=== PATIENT | male | born 1985 | race Caucasian/White ===

== ENCOUNTER 2025-02-20 14:41 | Emergency (ER) | payer OTHER, SELFPAY ==
--- NOTE | ~2025-02-20 | CT_ITS ---
EXAMINATION: CT brain wo con DATE: 02/20/2025 15:09 INDICATION: Fall. Intoxication. TECHNIQUE: Computed tomography (CT) of the head was performed without intravenous contrast. Sagittal and coronal reconstructions were performed. The mA was adjusted according to patient size. Iterative reconstruction technique was employed. The dose-length product was 605.33 mGy-cm. COMPARISON: None FINDINGS: No fracture. No acute intracranial hemorrhage, acute infarction or abnormal extra axial fluid collect ion. Ventricles are normal and symmetric. No mass/mass effect. Equals thickening the bilateral ethmoi d and sphenoid sinuses. The orbits and mastoid air cells are normal. IMPRESSION: 1. No fracture or acute intracranial process. Reviewed, dictated and finalized at location A.
--- NOTE | ~2025-02-20 | CT_ITS ---
EXAMINATION: CT cervical spine wo con DATE: 02/20/2025 15:09 INDICATION: Fall. Intoxication. TECHNIQUE: Computed tomography (CT) of the cervical spine was performed without intravenous contrast. Automated exposure control and iterative reconstruction technique were employed. The dose-length pro duct was 605.33 mGy-cm. COMPARISON: None FINDINGS: Straightening of the normal cervical lordosis. Vertebral body heights are normal. No fracture. Modera te to severe disc height loss with degenerative endplate changes and severe bilateral uncovertebral o steoarthritis at C5-C6. Moderate disc height loss also degenerative endplate changes and mild right-s ided and severe left-sided uncovertebral osteoarthritis at C6-C7. Mild disc height loss at C2-C3 thro ugh C4-C5. Posterior disc osteophyte complexes contribute to mild central canal stenosis at C4-C5 thr ough C6-C7. Severe bilateral facet osteoarthritis at C7-T1. There is additional mild to moderate unco vertebral and facet osteoarthritis throughout the remainder of the cervical spine. This contributes t o moderate neural foraminal stenosis on the left at C5-C6 and C6-7, mild to moderate neural foraminal stenosis on the right at C5-C6 and mild neural from stenosis at a few additional levels on the left and right. 1.4 cm subdermal cystic lesion posterior to the C2 and C3 spinous processes most consisten t with an epidermoid/sebaceous cyst. Cervical soft tissues are otherwise unremarkable. Visualized sup erior mediastinum and upper lungs are unremarkable. IMPRESSION: 1. Moderate to severe cervical spondylosis with no acute osseous abnormality. Reviewed, dictated and finalized at location A.
--- NOTE | 2025-02-20 14:52 | ED_ITS ---
HPI - Alcohol General Chief Complaint: Alcohol Stated Complaint: ETOH Time Seen by Provider: 02/20/25 14:41 Source: patient and EMS Mode of arrival: EMS Limitations: intoxication ( alcohol) History of Present Illness HPI narrative: patient is a 40-year-old male presented to the emergency room via EMS for a suspected fall with alcohol on board prior to arrival. He has no complaints. He is alcohol intoxicated at the time. EMS brought him due to intoxication. He has a small superficial abrasion on the left eyebrow. No other signs of injury. 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 of alcohol consumed: Unknown Chronic alcohol use: Yes Previous visits for alcohol intoxication: No Recent trauma: Yes ( unknown but suspect a fall per EMS) Associated symptoms: denies other symptoms Treatments prior to arrival: other ( IV and IV fluids) Related Data Home Medications ?Medication ?Instructions ?Recorded ?Confirmed ?Last Taken ?Type No Home Medications 02/20/25 02/20/25 Unknown History Allergies Allergy/AdvReac Type Severity Reaction Status Date / Time No Known Allergies Allergy Verified 02/20/25 15:01 Review of Systems Review of Systems: All systems reviewed & are unremarkable except as noted in HPI and below Constitutional: Constitutional: Reports no additional constitutional complaints Eyes: Eyes: Reports no additional eye complaints ENT: Reports system reviewed and no additional complaints, except as documented Cardiovascular: Cardiovascular: Reports no additional cardiovascular complaints Respiratory: Respiratory: Reports no additional respiratory complaints Gastrointestinal: Gastrointestinal: Reports no additional gastrointestinal complaints Genitourinary: Genitourinary: Reports no additional male genitourinary complaints Musculoskeletal: Musculoskeletal: Reports no additional musculoskeletal complaints Integumentary/Breasts: Skin/Breast: Reports system reviewed and no additional complaints, except as docu Neurologic: Reports system reviewed and no additional complaints, except as documented Psychiatric: Psychiatric: Reports no additional psychiatric complaints Endocrine: Endocrine: Reports no additional endocrine complaints Hematologic/Lymphatic: Hematologic/Lymphatic: Reports no additional hematologic/lymphatic complaints Allergic/Immunologic: Allergic/Immunologic: Reports no additional allergic/immunologic complaints Exam Const: General: healthy appearing Nutritional Appearance: well nourished Orientation/consciousness: patient oriented x3 Limitations: other limitations ( alcohol intoxication) HENMT: Head: normal to inspection Ears: external ears normal Face/Nose/Sinus: Normal external nose present Eyes: Conjunctivae: conjunctivae normal Pupils: Equal, round and reactive pupils present EOM: EOMs intact bilaterally Neck: Neck: normal visual inspection Chest: Chest palpation & inspection: normal inspection of the chest Resp: Effort & Inspection: normal respiratory effort and not labored Auscultation: clear to auscultation bilaterally and no crackles Cardio: Rate: regular rate Rhythm: regular rhythm Heart sounds: no murmurs GI: Inspection: non-distended GI Palp: Yes Soft to palpation and No Tenderness to palpation present (GI) Auscultation: normal bowel sounds : General: Yes bladder normal to palpation Back/Spine/Pelvis: Back: no CVA tenderness Skin: General skin exam: normal color Rashes: no rashes Wounds: wound noted Other: left upper eyebrow has a superficial abrasion Neuro: General: patient oriented x3, moves all extremities, no meningeal signs, no focal motor deficits and CN's II-XI intact bilaterally Cranial nerves: Yes Nystagmus not present Speech: No normal speech ( slurred secondary to alcohol intake) Extrem: General: normal to inspection Psych: Mental Status: mental status grossly normal Affect: normal affect Attitude: not cooperative ( somewhat cooperative but more so difficult) Course Vital Signs Vital signs: Vital Signs Temperature 36.6 C 02/20/25 15:02 Pulse Rate 74 02/20/25 15:02 Respiratory Rate 18 02/20/25 15:02 Blood Pressure 126/72 02/20/25 15:02 Pulse Oximetry 98 02/20/25 15:02 Oxygen Delivery Room Air 02/20/25 15:02 Temperature 36.6 C 02/20/25 15:02 Pulse Rate 68 02/20/25 17:09 Respiratory Rate 18 02/20/25 15:02 Blood Pressure 132/85 02/20/25 17:09 Pulse Oximetry 98 02/20/25 17:09 Oxygen Delivery Room Air 02/20/25 17:09 MDM - Alcohol MDM Narrative Medical decision making narrative: patient is a 40-year-old male alcohol intoxication here for alcohol intoxication by EMS decision to bring to the ER. There was a suspect fall and a left upper eyebrow superficial abrasion. Will check tetanus status. We will do CT head and neck for reassurance. Patient is AAO x4 at this time and ready for discharge. He was monitored in the emergency room for a couple of hours and no issues. Patient was road tested to the bathroom and he walked on his own w ithout difficulty. Further he was able to get up and walk in the room without trouble and walk out the main door without difficulty. He wanted to work on his ride home in the waiting room. He did not want assistance with a ride home at this time. Imaging Data Attestation: I personally reviewed and interpreted this imaging study as fol lows: Radiologist's impression: ITS Impressions Head CT 02/20/25 15:13 IMPRESSION: 1. No fracture or acute intracranial process. Cervical Spine CT 02/20/25 15:15 IMPRESSION: 1. Moderate to severe cervical spondylosis with no acute osseous abnormality. Discharge Plan Discharge Clinical Impression: Alcoholic intoxication Qualifiers: Complication of substance-induced condition: uncomplicated Qualified Code(s): F10.920 - Alcohol use, unspecified with intoxication, uncomplicated Patient Disposition: Home Condition: Improved Instructions: Alcohol Intoxication (ED) Patient Language: Mongolian Prescriptions: No Action No Home Medications Follow-up/Referrals: Porfirio Brady MD [Primary Care Provider] - Time of Disposition: 15:43
[2025-02-20 15:02] VITALS: BP 126/72; PULSE 74; RESP 18; TEMP 36.6; O2SAT 98
--- OUTSIDE RECORDS SUMMARY | 2025-02-20 15:34 | XMS_ITS | Clinical Summary ---
Author Organization [facility] Address [address] [place] [address] Phone Care Team Providers Care Instructor Flying Name Role Phone Provider, None Primary Care Provider Unavailabl e Allergies No known active allergies Medications * This document contains information received from the source organization and may not represent a complete record from that organization. No known medications Active Problems Problem Noted Date Diagnosed Date Alcohol withdrawal 12/08/2024 Chronic low back pain 03/28/2024 Obesity (BMI 30.0-34.9) 03/28/2024 Alcohol withdrawal 05/04/2023 Tobacco dependence 05/04/2023 Alcohol abuse Tobacco abuse Encounters * This document contains information received from the source organization and may not represent a complete record from that organization. Date Type Department Care Team Description 12/07/2024 Travel from Last 3 Months Family History Medical History Relation Name Comments No Known Problems Father No Known Problems Mother Relation Name Status Comments Father Mother Social History Tobacco Use Types Packs/Day Years Used Date Smoking Tobacco: Every Day Cigarettes 1 27.5 Started: 1997 Smokeless Tobacco: Never Tobacco Cessation:Ready to Q uit: No; Counseling Given: Not Answered Alcohol Use Standard Drinks/Week Comments Yes 10 (1 standard drink = 0.6 oz pure alcohol) 1/5 of whiskey or vodka per day [facility] Utilities Answer Date Recorded In the past 12 months has [facility] [employer], gas, oil, or water Foodily threatened to shut off services in your home? No 12/07/2024 Social Connection and Isolation Panel Answer Date Recorded In a typical week, how many times do you talk on the phone with family, friends, or neighbors? Patient declined 05/09/2024 How often do you get togethe r with friends or relatives? Patient declined 05/09/2024 How often do you attend shinto or amish serv ices? Patient declined 05/09/2024 Do you belong to any clubs o r organizations such as shinto groups, unions, fraternal or athletic groups, or school groups? Patient declined 05/09/2024 How often do you attend meet ings of the clubs or organizations you belong to? Patient declined 05/09/2024 Are you , , di vorced, , never , or living with a partner? Patient declined 05/09/2024 AUDIT-C Answer Date Recorded Q1: How often do you have a drink containing alc ohol? Patient declined 05/09/2024 Q2: How many drinks containi ng alcohol do you have on a typical day when you are drinking? Patient declined 05/09/2024 Q3: How often do you have si x or more drinks on one occasion? Patient declined 05/09/2024 Overall Financial Resource Strain (CARDIA) Answe r Date Recorded How hard is it for you to pa y for the very basics like food, housing, medical care, and heating? Patient declined 05/09/2024 [facility] - Occupational Stress Questionnaire Answer Date Recorded Do you feel stress - tense, restless, nervous, or anxious, or unable to sleep at night because your mind is troubled all the time - these days? Patient declined 05/09/2024 Exercise Vital Sign Answer Date Recorde d On average, how many days pe r week do you engage in moderate to strenuous exercise (like a brisk walk)? Patient declined On average, how many minutes do you engage in exercise at this level? Patient declined 05/09/2024 Hunger Vital Sign Answer Date Recorded Within the past 12 months, y ou worried that your food would run out before you got the money to buy more. Never true 12/08/19 25 Within the past 12 months, t he food you bought just didn't last and you didn't have money to get more. Never true 12/07/2024 PRAPARE - Transportation Answer Date Re corded In the past 12 months, has l ack of transportation kept you from medical appointments or from getting medications? No 08/2024 In the past 12 months, has l ack of transportation kept you from meetings, work, or from getting things needed for daily living? No 12/07/2024 Housing Stability Vital Sign Answer Jeffrey e Recorded In the last 12 months, was t here a time when you were not able to pay the mortgage or rent on time? No 12/07/2024 In the past 12 months, how m any times have you moved where you were living? 1 12/07/2024 At any time in the past 12 m [facility], were you homeless or living in a [facility] (including now)? No 12/07/2024 Sexually Active Control Partners Comments Yes Male Condom Female Sex and Gender Information Value Date Recorded Sex Assigned at Not on file Legal Sex Male 5:14 PM CDT Gender Identity Not on file Sexual Orientation Not on file Last Filed Vital Signs Vital Sign Reading Time Taken Comments Blood Pressure 111/78 12/08/2024 4:00 AM CDT Pulse 76 12/08/2024 4:00 AM CDT Temperature 36 C (96.8 F) 12/08/2024 4:00 AM CDT Respiratory Rate 16 12/08/2024 4:00 AM CDT Oxygen Saturation 98% 12/08/2024 4:00 AM CDT Inhaled Oxygen Concentration - - Weight 86.2 kg (190 lb) 12/07/2024 4:26 PM CDT Height 170.2 cm (5' 7) 12/07/2024 4:26 PM CDT Body Mass Index 29.76 12/07/2024 4:26 PM CDT Plan of Treatment Health Maintenance Due Date Last Done Comments Hepatitis C Virus (HCV) Screening 1985 Human Papillomavirus (HPV) Immunization (1 - Male 3-dose series) 01/17/2000 Hepatitis B Immunization (1 of 3 - 19+ 3-dose series) 01/17/2004 Pneumococcal Immunization Combined (1 of 2 - PCV) 01/17/2004 SARS-COV-2 Immunization (1 - season) 2024 Influenza Immunization (#1) 2025 Respiratory Syncytial Virus (RSV) Immunization (Adult) (1 - 1-dose 75+ series) 01/17/2060 TdaP Immunization Completed 01/07/2024, 09/16/2017 Meningococcal Immunization (ACWY) Aged Out No longer eligible b ased on patient's age to complete this topic Rotavirus Immunization Aged Out No lo nger eligible based on patient's age to complete this topic Procedures Procedure Name Priority Date/Time Associated Diagnosis Comments CBC WITH AUTO DIFFERENTIAL Routine 12/08/2024 4:12 AM CDT AMYLASE Routine 12/08/2024 4:12 AM CDT MAGNESIUM (MG) Routine 12/08/2024 4:12 AM CDT PHOSPHORUS (PO4) Routine 12/08/2024 4:12 AM CDT LIPASE Routine 12/08/2024 4:12 AM CDT ETHYL ALCOHOL (ETHANOL) Routine 12/08/2024 4:12 AM CDT PROTIME (PT) (PROTHROMBIN TIME) Routine 12/08/2024 4:12 AM CDT CMP (COMPREHENSIVE METABOLIC PANEL) Routine 12/08/2024 4:12 AM CDT COMPLETE BLOOD COUNT (CBC) WITH DIFF Routine 12/08/2024 4:12 AM CDT URINALYSIS (UA) MACROSCOPIC Routine 12/08/2024 4:10 AM CDT URINE DRUG SCREEN Routine 12/07/2024 4:2 9 PM CDT from Last 3 Months Results * (ABNORMAL) CBC with Auto Differential (12/08/2024 4:12 AM CDT) WBC 11.23 4.00 - 12.00 10(3)/mcL 12/08/2024 4:41 AM CDT [facility] RBC 5.36 4.40 - 5.80 10(6)/mcL 12/08/2024 4:41 AM CDT [facility] HEMOGLOBIN (HGB) 15.6 13.0 - 16.5 g/dL 12/08/2024 4:41 AM CDT [facility] HEMATOCRIT (HCT) 47.3 38.0 - 50.0 % 12/08/2024 4:41 AM CDT [facility] MCV 88.2 82.0 - 96.0 fL 12/08/2024 4:41 AM CDT [facility] MCH 29.1 26.0 - 32.0 pg 12/08/2024 4:41 AM CDT [facility] MCHC 33.0 31.0 - 36.0 g/dL 12/08/2024 4:41 AM CDT [facility] PLATELET COUNT 294 140 - 440 10(3)/mcL 12/08/2024 4:41 AM CDT [facility] RDW 13.4 11.8 - 15.5 % 12/08/2024 4:41 AM CDT [facility] MPV 9.9 8.0 - 12.6 fL 12/08/2024 4:41 AM CDT [facility] NEUTROPHILS 64.0 40.0 - 68.0 % 12/08/2024 4:41 AM CDT [facility] LYMPHOCYTES 27.3 19.0 - 49.0 % 12/08/2024 4:41 AM CDT [facility] MONOCYTES 5.6 3.0 - 13.0 % 12/08/2024 4:41 AM CDT [facility] EOSINOPHILS 2.7 0.0 - 8.0 % 12/08/2024 4:41 AM CDT [facility] BASOPHILS 0.4 0.0 - 1.0 % 12/08/2024 4:41 AM CDT [facility] ABSOLUTE NEUTROPHILS 7.19(H) 1.40 - 5.30 10(3)/mcL 12/08/2024 4:41 AM CDT [facility] ABSOLUTE LYMPHOCYTES 3.07 0.90 - 3.30 10(3)/mcL 12/08/2024 4:41 AM CDT [facility] ABSOLUTE MONOCYTES 0.63 0.10 - 0.90 10(3)/mcL 12/08/2024 4:41 AM CDT [facility] ABSOLUTE EOSINOPHIL 0.30 0.00 - 0.50 10(3)/mcL 12/08/2024 4:41 AM CDT [facility] ABSOLUTE BASOPHILS 0.04 0.00 - 0.10 10(3)/mcL 12/08/2024 4:41 AM CDT [facility] NRBC PER 100 WBC 0 12/09/19 4:41 AM CDT [facility] Blood Venipuncture / Unknown 12/08/2024 4:12 AM CDT 12/08/2024 4:39 AM CDT us Sylvia Montes De Oca APRN, SILK SCREEN PRINTING RACKER HEMATOLOGY ORDERABLES F inal Result Performing Organization Address [facility] Co de Phone Number [facility] [address] [place] [address] * (ABNORMAL) PROTIME (PT) (PROTHROMBIN TIME) (12/08/2024 4:12 AM CDT) PROTIME-PATIENT 11.4(L) 11.6 - 14.8 sec 12/08/2024 4:56 AM CDT [facility] INR 0.8(L) 0.9 - 1.2 12/08/2024 4:56 AM CDT [facility] Comment: Therapeutic Ranges INR = 2.0-3.0: Venous thromb, atrial fib, pul embolism, tissue heart valve, ami. INR = 2.5-3.5: Mechanical heart valve Critical value for INR is >/= 4.5 Blood Venipuncture / Unknown 12/08/2024 4:12 AM CDT 12/08/2024 4:39 AM CDT us Sylvia Montes De Oca APRN, SILK SCREEN PRINTING RACKER HEMATOLOGY ORDERABLES F inal Result Performing Organization Address [facility]/ZIP Co de Phone Number [facility] [address] [place] [address] * PHOSPHORUS (PO4) (12/08/2024 4:12 AM CDT) PHOSPHORUS 3.0 2.5 - 4.5 mg/dL 12/08/2024 5:03 AM CDT [facility] Blood Venipuncture / Unknown 12/08/2024 4:12 AM CDT 12/08/2024 4:38 AM CDT Sylvia Montes De Oca APRN, SILK SCREEN PRINTING RACKER CHEMISTRY ORDERABLES Fi nal Result Performing Organization Address City/[facility]/ZIP Co de Phone Number [facility] [address] [place] [address] * MAGNESIUM (MG) (12/08/2024 4:12 AM CDT) MAGNESIUM 2.0 1.6 - 2.6 mg/dL 12/08/2024 5:03 AM CDT [facility] Blood Venipuncture / Unknown 12/08/2024 4:12 AM CDT 12/08/2024 4:38 AM CDT us Sylvia Montes De Oca APRN, SILK SCREEN PRINTING RACKER CHEMISTRY ORDERABLES Fi nal Result Performing Organization Address City/[facility]/ZIP Co de Phone Number [facility] [address] [place] [address] * Lipase (12/08/2024 4:12 AM CDT) LIPASE 26 8 - 78 U/L 12/08/2024 5:03 AM CDT [facility] Blood Venipuncture / Unknown 12/08/2024 4:12 AM CDT 12/08/2024 4:38 AM CDT us Sylvia Montes De Oca APRN, SILK SCREEN PRINTING RACKER CHEMISTRY ORDERABLES Fi nal Result [facility] [address] [place] [address] * Ethyl Alcohol (Ethanol) (12/08/2024 4:12 AM CDT) Pathologist [facility] ETHANOL <10 <10 mg/dL 12/08/2024 5:0 3 AM CDT [facility] Blood Venipuncture / Unknown 12/08/2024 4:12 AM CDT 12/08/2024 4:38 AM CDT Sylvia Montes De Oca HAND ZIPPER TRIMMER, SILK SCREEN PRINTING RACKER CHEMISTRY ORDERABLES Fi nal Result [facility] [address] [place] [address] * (ABNORMAL) CMP (Comprehensive Metabolic Panel) (12/08/2024 4:12 AM CDT) Pathologist [facility] SODIUM 137 136 - 145 mmol/L 12/08/2024 5:03 AM CDT [facility] POTASSIUM 4.2 3.5 - 5.1 mmol/L 12/08/2024 5:03 AM CDT [facility] CHLORIDE 104 98 - 107 mmol/L 12/08/2024 5:03 AM CDT [facility] CO2, VENOUS 26 22 - 30 mmol/L 12/08/2024 5:03 AM CDT [facility] ANION GAP 11.2 <18.0 mmol/L 12/08/2024 5:03 AM CDT [facility] GLUCOSE 99 70 - 99 mg/dL 12/08/2024 5:03 AM CDT [facility] BUN 19 9 - 21 mg/dL 12/08/2024 5:03 AM CDT [facility] CREATININE, BLOOD 0.83 0.70 - 1.30 mg/dL 12/08/2024 5:03 AM CDT [facility] BUN/CREATININE RATIO 23(H) 12 - 20 ratio 12/08/2024 5:03 AM CDT [facility] TOTAL PROTEIN 7.3 6.0 - 8.0 g/dL 12/08/2024 5:03 AM CDT [facility] ALBUMIN 4.1 3.5 - 5.0 g/dL 12/08/2024 5:03 AM CDT [facility] A/G RATIO 1.3 1.0 - 2.2 12/08/2024 5:03 AM CDT [facility] CALCIUM 9.3 8.7 - 10.5 mg/dL 12/08/2024 5:03 AM CDT [facility] T BILI 0.2 0.2 - 1.2 mg/dL 12/08/2024 5:03 AM CDT [facility] SGOT (AST) 42 <43 U/L 12/08/2024 5:03 AM [facility] SGPT (ALT) 55 <56 U/L 12/08/2024 5:03 AM CDT [facility] ALKALINE PHOSPHATASE 109 40 - 150 U/L 12/08/2024 5:03 AM CDT [facility] GFR, ESTIMATED >60 >=60 12/08/2024 5:03 AM T [facility] Comment: Creatinine Clearance is the preferred criteria for selecting drug dose adjustments in renally impaired patients. The GFR is provided as additional pertinent clinical information. GFR is reported in mL/min/1.73 sq m. Calculation based on the Chronic Kidney Disease Epidemiology Collaboration (CKD- EPI) equation refit without adjustment for race. GFR, EST. >60 >=60 025 5:03 AM CDT [facility] GFR, EST. NONAFRICAN >60 >=60 12/08/2024 5:03 AM [facility] Blood Venipuncture / Unknown 12/08/2024 4:12 AM CDT 12/08/2024 4:38 AM CDT Sylvia Montes De Oca HAND ZIPPER TRIMMER, SILK SCREEN PRINTING RACKER CHEMISTRY ORDERABLES Fi nal Result Performing Organization Address City/[facility]/ZIP Co de Phone Number [facility] [address] [place] [address] * Amylase (12/08/2024 4:12 AM CDT) Pathologist [facility] AMYLASE 54 25 - 125 U/L 12/08/2024 5:03 AM CDT [facility] Blood Venipuncture / Unknown 12/08/2024 4:12 AM CDT 12/08/2024 4:38 AM CDT Sylvia Montes De Oca APRN, CNP CHEMISTRY ORDERABLES Fi nal Result Performing Organization Address [facility] Co de Phone Number [facility] [address] [place] [address] * (ABNORMAL) Urinalysis (Ua) Macroscopic (12/08/2024 4:10 AM CDT) [facility] SPECIFIC GRAVITY 1.010 1.003 - 1.030 12/08/2024 5:31 AM CDT [facility] URINE PH 7.0 5.0 - 9.0 12/08/2024 5:31 AM CDT [facility] WBC ESTERASE Negative Negative 12/08/2024 5:31 AM CDT [facility] NITRITE Negative Negative 12/08/2024 5:31 AM CDT [facility] PROTEIN, RANDOM URINE 15 mg/dL(A) Negative 12/08/2024 5:31 AM CDT [facility] URINE GLUCOSE, QUAL Negative Negative 12/08/2024 5:31 AM CDT [facility] URINE KETONES Negative Negative 12/08/2024 5:31 AM CDT [facility] UROBILINOGEN Normal Normal mg/dL 12/08/2024 5:31 AM CDT [facility] URINE BLOOD Negative Negative maddison/ul 12/08/2024 5:31 AM CDT [facility] URINALYSIS COLOR Yellow 12/09/19 5:31 AM CDT [facility] URINALYSIS CLARITY Clear 12/08/2024 5:31 AM CDT [facility] Urine Non-Phlebotomy Collection / Unknown 12/08/2024 4:10 AM CDT 12/08/2024 4:38 AM CDT Sylvia Montes De Oca HAND ZIPPER TRIMMER, SILK SCREEN PRINTING RACKER URINE ORDERABLES Final Result [facility] [address] [place] [address] * (ABNORMAL) Urine Drug Screen (12/07/2024 4:29 PM CDT) UR AMPHETAMINE NON DETECTED NON DETECTED 12/07/2024 4:52 PM CDT [facility] Comment: FOR MEDICAL USE ONLY. CUTOFF CONCENTRATION FOR DETECTED RESULT: AMPHETAMINE: 500 NG/ML UR BENZODIAZEPINES NON DETECTED NON DETECTED 12/07/2024 4:52 PM CDT [facility] Comment: FOR MEDICAL USE ONLY. CUTOFF CONCENTRATION FOR DETECTED RESULT: BENZODIAZAPINE: 200 NG/ML UR COCAINE METABOLITE NON DETECTED NON DETECTED 12/07/2024 4:52 PM CDT [facility] Comment: FOR MEDICAL USE ONLY. CUTOFF CONCENTRATION FOR DETECTED RESULT: COCAINE: 150 NG/ML UR OPIATES NON DETECTED NON DETECTED 12/07/2024 4:52 PM CDT [facility] Comment: FOR MEDICAL USE ONLY. CUTOFF CONCENTRATION FOR DETECTED RESULT: OPIATES: 300 NG/ML UR PHENCYCLIDINE NON DETECTED NON DETECTED 12/07/2024 4:52 PM CDT [facility] Comment: FOR MEDICAL USE ONLY. CUTOFF CONCENTRATION FOR DETECTED RESULT: PCP: 25 NG/ML UR CANNABINOID DETECTED(A) NON DETECTED 12/07/2024 4:52 PM CDT [facility] Comment: FOR MEDICAL USE ONLY. CUTOFF CONCENTRATION FOR DETECTED RESULT: THC (MARIJUANA): 50 NG/ML UR BARBITURATE NON DETECTED NON DETECTED 12/07/2024 4:52 PM CDT [facility] Comment: FOR MEDICAL USE ONLY. CUTOFF CONCENTRATION FOR DETECTED RESULT: BARBITUATES: 200 NG/ML UR FENTANYL NON DETECTED NON DETECTED 12/07/2024 4:52 PM CDT [facility] Comment: FOR MEDICAL USE ONLY. CUTOFF CONCENTRATION FOR DETECTED RESULT: FENTANYL: 1.0 NG/ML Urine Non-Phlebotomy Collection / Unknown 12/07/2024 4:29 PM CDT 12/07/2024 4:31 PM CDT us Brad Monsalve MD URINE ORDERABLES Final R esult [facility] [address] [place] [address] from Last 3 Months [facility] Advance Directives * Full Code (Latest Code Status on File) Date Activated Date Inactivated Comments 05/09/2024 6:58 PM CPR-Full Treat ment: FULL ARREST: Attempt Resuscitation/CPR wit intubation and mechanical ventilation. PRE-ARREST: Use entire range of life support measures to stabilize the patient. * Full Code Date Activated Date Inactivated Comments 03/31/2024 8:56 AM 05/09/2024 3:08 PM CPR-Full Joao atment: FULL ARREST: Attempt Resuscitation/CPR wit intubation and mechanical ventilation. PRE-ARREST: Use entire range of life support measures to stabilize the patient. * Full Code Date Activated Date Inactivated Comments 05/04/2023 3:18 PM 05/06/2023 1:47 PM CPR-Full Joao atment: FULL ARREST: Attempt Resuscitation/CPR wit intubation and mechanical ventilation. PRE-ARREST: Use entire range of life support measures to stabilize the patient. Care Teams Instructor Flying Relationship Specialty Start Date End Date Provider, None [place] PCP - General 05/05/23
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
--- OUTSIDE RECORDS SUMMARY | 2025-02-20 15:34 | XMS_ITS | Encounter Summary ---
Author Organization [facility] Address [address] [place] [address] Care Team Providers Care Transmitter Operator Name Role Phone No, Physician Primary Care Provider [phone] Encounter Details Date Type Department Care Team (Late st Contact Info) Description 02/08/2025 [facility] Initial Eligibility [facility] Warm Hand Off Program [address] [place] [address] Slime Chang Social History Tobacco Use Types Packs/Day Years Used Date Smoking Tobacco: Every Day Cigarettes Alcohol Use Standard Drinks/Week Comments Yes 0 (1 standard drink = 0.6 oz pur e alcohol) 2 1/5th per day [facility] Utilities Answer Date Recorded In the past 12 months has th [employer] electric, gas, oil, or water company threatened to shut off services in your home? No 12/13/2024 Social Connection and Isolation Panel [NHANES] A nswer Date Recorded In a typical week, how many times do you talk on the phone with family, friends, or neighbors? Three times a week 12/13/2024 How often do you get togethe r with friends or relatives? Twice a week 12/13/2024 How often do you attend [facility] or hoahaoism services? Never 12/13/2024 Do you belong to any clubs o r organizations such as catholic groups, unions, fraternal or athletic groups, or school groups? No 12/13/2024 How often do you attend meet ings of the clubs or organizations you belong to? Never 12/13/2024 Are you , , di vorced, , never , or living with a partner? Never 12/13/2024 AUDIT-C Answer Date Recorded Q1: How often do you have a drink containing alcohol? 4 or more times a week 12/12/2024 Q2: How many drinks containi ng alcohol do you have on a typical day when you are drinking? 10 or more Q3: How often do you have si x or more drinks on one occasion? Daily or almost daily 12/12/2024 Overall Financial Resource Strain (CARDIA) Answe r Date Recorded How hard is it for you to pa y for the very basics like food, housing, medical care, and heating? Not hard at all 12/13/2024 Hunger Vital Sign Answer Date Recorded Within the past 12 months, y ou worried that your food would run out before you got the money to buy more. Never true 12/14/19 25 Within the past 12 months, t he food you bought just didn't last and you didn't have money to get more. Never true 12/13/2024 PRAPARE - Transportation Answer Date Re corded In the past 12 months, has l ack of transportation kept you from medical appointments or from getting medications? No 02/2025 In the past 12 months, has l ack of transportation kept you from meetings, work, or from getting things needed for daily living? No 12/13/2024 Housing Stability Vital Sign Answer Jeffrey e Recorded In the last 12 months, was t here a time when you were not able to pay the mortgage or rent on time? No 12/13/2024 In the past 12 months, how m any times have you moved where you were living? 0 12/13/2024 [facility] were you [facility] or living in a longterm (including now)? No 12/13/2024 Personal Safety Answer Date Recorded Have you ever been in or are you currently in a harmful physical or emotional relationship or is someone making you feel afraid or unsafe? Denies 02/08/2025 Sex and Gender Information Value Date Recorded Sex Assigned at Not on file Legal Sex Male 8:04 AM CDT Gender Identity Not on file Sexual Orientation Not on file documented as of this encounter Plan of Treatment Not on file documented as of this encounter Visit Diagnoses Not on filedocumented in this encounter Care Teams Transmitter Operator Relationship Specialty Start Date End Date No, Physician PCP - General 01/08/23 documented as of this encounter
--- OUTSIDE RECORDS SUMMARY | 2025-02-20 15:34 | XMS_ITS | Clinical Summary ---
Author Organization [facility] Address [address] [place] [address] Care Team Providers Care Urgent Care Technician Name Role Phone Unavailable Primary Care Provider Unavailabl e Source Comments [facility],non-owned Affiliates and Associated Physician Practices is amultiple site organization consisting of ambulatory clinics and hospital sitesin [place], [place], [place] and [place]. This disclosure is being madepursuant to the Care Everywhere program and may not contain all information available regarding this patient. Last updated 18.[facility] [employer] Social History Tobacco Use Types Packs/Day Years Used Date Smoking Tobacco: Never Assessed Sex and Gender Information Value Date Recorded Sex Assigned at Male 02/04/2024 9:49 PM CDT Legal Sex Male 3:53 PM CDT Gender Identity Not on file Sexual Orientation Not on file Last Filed Vital Signs Vital Sign Reading Time Taken Comments Blood Pressure 127/69 02/05/2024 2:50 AM CDT Pulse 77 02/05/2024 2:50 AM CDT Temperature 36.8 C (98.2 F) 02/05/2024 2:50 AM CDT Respiratory Rate 18 02/05/2024 2:50 AM CDT Oxygen Saturation 98% 02/05/2024 2:50 AM CDT Inhaled Oxygen Concentration - - Weight 77.1 kg (170 lb) 02/04/2024 3:57 PM CDT Height 177.8 cm (5' 10) 02/04/2024 3:57 PM CDT Body Mass Index 24.39 02/04/2024 3:57 PM CDT Plan of Treatment Health Maintenance Due Date Last Done Comments LIPID TESTING 1985 HIV SCREENING 01/17/2000 HEPATITIS C SCREENING 01/12/2003 DTAP/TDAP/TD VACCINES (1 - Tdap) 01/17/2004 HEPATITIS B VACCINE (1 of 3 - 19+ 3-dose series) 01/17/2004 HPV VACCINE (1 - 3-dose SCDM series) 01/17/2012 COVID-19 VACCINE (1 - 2023-2 5 season) 2024 DEPRESSION SCREENING 08/09/2024 INFLUENZA VACCINE (#1) 2025 ZOSTER VACCINE (1 of 2) 2035 HIB VACCINE Aged Out No longer eligi ble based on patient's age to complete this topic MENINGOCOCCAL (Group B) VACC INE SHARED DECISION-MAKING Aged Out No longer eligibl e based on patient's age to complete this topic MENINGOCOCCAL GROUPS A/C/Y/W VACCINE Aged Out No longer eligible b ased on patient's age to complete this topic PNEUMOCOCCAL VACCINE Aged Out No long er eligible based on patient's age to complete this topic Insurance
--- OUTSIDE RECORDS SUMMARY | 2025-02-20 15:35 | XMS_ITS | Clinical Summary ---
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 18 capsule 12/14/19 25 025 Discontinued metoclopramide (REGLAN) 10 mg tablet Take 1 tablet (10 mg total) by mouth every 6 (six) hours 30 tablet 02/09/20 25 025 Discontinued Active Problems Problem Noted Date Diagnosed Date Alcohol withdrawal syndrome with complication Alcohol abuse 04/25/2024 Alcohol withdrawal syndrome without complication 04/25/2024 Tobacco abuse 04/25/2024 Alcoholic intoxication with complication 024 Encounters Date Type Department Care Team Description 02/08/2025 1:16 PM CDT - 02/10/2025 12:45 PM CDT Hospital Encounter [address] [address] Carlton Sahu DO Alcohol withdrawal syndrome without complication (HCC) (Primary Dx); Opioid withdrawal (HCC) Discharge Disposition: Discharge to home or self care 02/08/2025 [facility] Initial Eligibility [facility] Warm Hand Off Program [address] [place], [place] [phone] Slime Chang 02/07/2025 12:43 PM CDT - 02/08/2025 1:24 AM CDT Emergency [facility] Emergency Department [address] [place] [address] Alcoholic intoxication without complication (Primary Dx) Discharge Disposition: Discharge to home or self care 02/07/2025 Documentation [facility] Off [facility] [address] [place] [phone] Elke Faith 01/23/2025 Documentation [facility] Case Management [address] [place] [address] Leah Olson 12/12/2024 1:15 PM CDT - 12/13/2024 10:51 AM CDT Hospital Encounter [address] [address] Troy Love MD Ali, Md Shahin, MD Alcohol withdrawal syndrome with complication (HCC) (Primary Dx); Encounter to establish care Discharge Disposition: Discharge to home or self care from Last 3 Months Medical History Medical History Date Comments Alcohol abuse Social History Tobacco Use Types Packs/Day Years Used Date Smoking Tobacco: Every Day Cigarettes Tobacco Cessation:Ready to Q uit: Not Asked; Counseling Given: Not Answered Alcohol Use Standard Drinks/Week Comments Yes 0 (1 standard drink = 0.6 oz pur e alcohol) 2 1/5th per day [facility] Utilities Answer Date Recorded In the past 12 months has u.sit, oil, or water [employer] threatened to shut off services in your home? No 12/13/2024 Social Connection and Isolation Panel [NHANES] A nswer Date Recorded In a typical week, how many times do you talk on the phone with family, friends, or neighbors? Three times a week 12/13/2024 How often do you get togethe r with friends or relatives? Twice a week 12/13/2024 How often do you attend chur or synagogue services? Never 12/13/2024 Do you belong to any clubs o r organizations such as pentecostalism groups, unions, fraternal or athletic groups, or [...] any time in the past 12 m [facility], were you homeless or living in a fpc (including now)? No 12/13/2024 Personal Safety Answer [...] on file Sexual Orientation Not on file Obstetrics History Last Filed Vital Signs Vital Sign Reading Time Taken Comments Blood Pressure 105/74 02/10/2025 7:37 AM CDT Pulse 72 02/10/2025 7:37 AM CDT Temperature 36.9 C (98.4 F) 02/10/2025 7:37 AM CDT Respiratory Rate 20 02/10/2025 7:37 AM CDT Oxygen Saturation 99% 02/10/2025 7:37 AM CDT Inhaled Oxygen Concentration - - Weight 88.5 kg (195 lb) 02/08/2025 5:05 PM CDT Height 175.3 cm (5' 9) 02/08/2025 5:05 PM CDT Body Mass Index 28.8 02/08/2025 5:05 PM CDT Plan of Treatment Health Maintenance Due Date Last Done Comments Depression Screening 1985 Hepatitis C Screening 1985 Varicella Vaccines (1 of 2 - 13+ 2-dose series) 1998 Hepatitis B Screening 2003 Regular Well Visit/Exam 18-64 2003 Pneumococcal vaccine <65 (1 of 2 - PCV) 01/17/2004 Influenza Vaccine (#1) 2025 DTaP/Tdap/Td Vaccine (3 - Td or Tdap) 01/06/2034 01/07/2024, 09/16/2017 HPV Vaccines Aged Out No longer eligi ble based on patient's age to complete this topic Procedures Procedure Name Priority Date/Time Associated Diagnosis Comments EGFR Routine 02/10/2025 3:12 AM CDT DIFFERENTIAL AUTO Routine 02/10/2025 3:1 2 AM CDT MAGNESIUM Routine 02/10/2025 3:12 AM CDT COMPREHENSIVE METABOLIC PANEL Routine 02/10/2025 3:12 AM CDT CBC WITH AUTO DIFFERENTIAL Routine 02/10/2025 3:12 AM CDT EGFR Routine 02/09/2025 10:41 AM CDT DIFFERENTIAL AUTO Routine 02/09/2025 10: 41 AM CDT LACTATE Routine 02/09/2025 10:41 AM CDT MAGNESIUM Routine 02/09/2025 10:41 AM CDT COMPREHENSIVE METABOLIC PANEL Routine 02/09/2025 10:41 AM CDT CBC WITH AUTO DIFFERENTIAL Routine 02/09/2025 10:41 AM CDT LACTATE Routine 02/08/2025 5:33 PM CDT DRUGS OF ABUSE SCREEN, URINE WITH REFLEX CONFIRMATION STAT 02/08/2025 11:12 AM CDT URINALYSIS AND REFLEX TO MICROSCOPIC AND CULTURE STAT 02/08/2025 11:12 AM CDT EGFR STAT 02/08/2025 11:01 AM CDT DIFFERENTIAL AUTO STAT 02/08/2025 11: 01 AM CDT ETHANOL STAT 02/08/2025 11:01 AM CDT CBC WITH AUTO DIFFERENTIAL STAT 02/08/2025 11:01 AM CDT COMPREHENSIVE METABOLIC PANEL STAT 02/08/2025 11:01 AM CDT ETHANOL Timed 02/08/2025 12:28 AM CDT DRUGS OF ABUSE SCREEN, URINE WITHOUT CONFIRMATION STAT 02/07/2025 3:33 PM CDT EGFR STAT 02/07/2025 12:19 PM CDT DIFFERENTIAL AUTO STAT 02/07/2025 12: 19 PM CDT ETHANOL STAT 02/07/2025 12:19 PM CDT COMPREHENSIVE METABOLIC PANEL STAT 02/07/2025 12:19 PM CDT CBC WITH AUTO DIFFERENTIAL STAT 02/07/2025 12:19 PM CDT EGFR Routine 12/13/2024 3:12 AM CDT DIFFERENTIAL AUTO Routine 12/13/2024 3:1 2 AM CDT PHOSPHORUS Routine 12/13/2024 3:12 AM CDT MAGNESIUM Routine 12/13/2024 3:12 AM CDT BASIC METABOLIC PANEL Routine 12/13/2024 3:12 AM CDT CBC WITH AUTO DIFFERENTIAL Routine 12/13/2024 3:12 AM CDT DRUGS OF ABUSE SCREEN, URINE WITHOUT CONFIRMATION STAT 12/12/2024 11:56 AM CDT URINALYSIS AND REFLEX TO MICROSCOPIC AND CULTURE STAT 12/12/2024 11:56 AM CDT EGFR STAT 12/12/2024 11:52 AM CDT DIFFERENTIAL AUTO STAT 12/12/2024 11: 52 AM CDT SALICYLATE LEVEL STAT 12/12/2024 11:5 2 AM CDT ACETAMINOPHEN LEVEL STAT 12/12/2024 1 1:52 AM CDT ETHANOL STAT 12/12/2024 11:52 AM CDT THYROID FUNCTION CASCADE STAT 12/12/2024 11:52 AM CDT COMPREHENSIVE METABOLIC PANEL STAT 12/12/2024 11:52 AM CDT CBC WITH AUTO DIFFERENTIAL STAT 12/12/2024 11:52 AM CDT ECG 12-LEAD STAT 12/12/2024 11:46 AM CDT from Last 3 Months Results * eGFR (02/10/2025 3:12 AM CDT) eGFR 89 >=60 mL/min/1. 73 m2 Comment: Interpretive Data Reference Interval Normal >/= 90 mL/min/1.73m2 Mildly decreased* 60 - 89 mL/min/1.73m2 Mildly to moderately decreased 45 - 59 mL/min/1.73m2 Moderately to severely decreased 30 - 44 mL/min/1.73m2 Severely decreased 15 - 29 mL/min/1.73m2 Kidney Failure < 15 mL/min/1.73m2 *Relative to young adult level Estimated glomerular filtration rate is determined by the 2020 CKD-EPI equation recommended by the National Kidney Foundation (A Unifying Approach to GFR Estimation: Recommendations of the NKF-ASK Task Force on Reassessing the Inclusion of Race in Diagnosing Kidney Disease, JASN 2020). The CKD-EPI equation should not be used for patients with unstable renal function and has not been validated in children and those over 70. Current interpretive data was last reviewed 2021. Blood 02/10/2025 3:12 AM CDT 02/10/2025 3:41 AM CDT Carlton Sahu DO LAB BLOOD ORDERABLES Fi nal Result DONALD [address] [facility] Department [place] [address] * (ABNORMAL) Differential, auto (02/10/2025 3:12 AM CDT) Neutrophil abs 8.70(H) 1.50 - 6.50 K/cumm Imm gran abs 0.04 0.00 - 0.10 K/cumm [facility] Lymphocyte abs 2.45 0.80 - 3.30 K/cumm [facility] Monocyte abs 1.09(H) 0.20 - 0.80 K/cumm [facility] Eosinophil abs 0.46 0.00 - 0.50 K/cumm [facility] Basophil abs 0.05 0.00 - 0.10 K/cumm [facility] Neutrophil pct 68.0 % [facility] Comment: Interpretive Data Percent cell count reference ranges are not reported, since discordance with absolute values may lead to misinterpretation of CBC data. Current Interpretive Data was last revised on 2017. Imm gran pct 0.3 % [facility] Comment: Interpretive Data Percent cell count reference ranges are not reported, since discordance with absolute values may lead to misinterpretation of CBC data. Current Interpretive Data was last revised on 2017. Lymphocyte pct 19.2 % [facility] Comment: Interpretive Data Percent cell count reference ranges are not reported, since discordance with absolute values may lead to misinterpretation of CBC data. Current Interpretive Data was last revised on 2017. Monocyte pct 8.5 % [facility] Comment: Interpretive Data Percent cell count reference ranges are not reported, since discordance with absolute values may lead to misinterpretation of CBC data. Current Interpretive Data was last revised on 2017. Eosinophil pct 3.6 % [facility] Comment: Interpretive Data Percent cell count reference ranges are not reported, since discordance with absolute values may lead to misinterpretation of CBC data. Current Interpretive Data was last revised on 2017. Basophil pct 0.4 % [facility] Comment: Interpretive Data Percent cell count reference ranges are not reported, since discordance with absolute values may lead to misinterpretation of CBC data. Current Interpretive Data was last revised on 2017. Blood 02/10/2025 3:12 AM CDT 02/10/2025 3:42 AM CDT us Carlton Sahu DO LAB BLOOD ORDERABLES Fi nal Result DONALD CARTER [address] [facility] Department [place] [address] * (ABNORMAL) CBC with auto differential (02/10/2025 3:12 AM CDT) WBC 12.79(H) 3.80 - 9.90 K/cumm Hgb 14.5 13.0 - 17.5 g/dL [facility] Hct 43.9 38.9 - 50.3 % [facility] Plt 340 150 - 400 K/cumm [facility] MPV 9.8 9.1 - 12.3 fL [facility] RBC 5.04 4.30 - 5.80 M/cumm [facility] MCV 87.1 81.3 - 96.4 fL [facility] MCH 28.8 27.1 - 33.3 pg [facility] MCHC 33.0 32.3 - 35.7 g/dL [facility] RDW CV 14.1 11.1 - 14.9 % [facility] RDW SD 44.9 35.7 - 48.1 fL [facility] NRBC abs 0.00 0.00 - 0.01 K/cumm [facility] Blood 02/10/2025 3:12 AM CDT 02/10/2025 3:42 AM CDT [employer] DO LAB BLOOD ORDERABLES Fi nal Result Performing Organization Address [facility] Co de Phone Number [address] [place] [address] * Magnesium (02/10/2025 3:12 AM CDT) [facility] Magnesium 2.1 1.4 - 2.5 mg/dL Blood 02/10/2025 3:12 AM CDT 02/10/2025 3:41 AM CDT Prestigos DO LAB BLOOD ORDERABLES Fi nal Result Performing Organization Address [facility] Co de Phone Number [address] [place] [address] * (ABNORMAL) Comprehensive metabolic panel (02/10/2025 3:12 AM CDT) [facility] Sodium 142 135 - 145 mmol/L Potassium, pl 4.5 3.3 - 4.9 mmol/L [facility] Chloride 108 97 - 110 mmol/L [facility] CO2 24 22 - 32 mmol/L [facility] Anion gap 10 2 - 15 mmol/L [facility] BUN 18 6 - 25 mg/dL [facility] Creatinine 1.08 0.80 - 1.30 mg/dL [facility] Glucose 105 70 - 199 mg/dL [facility] Comment: Interpretive Data Fasting glucose >/= 126 mg/dl is diagnostic for diabetes. Fasting is defined as no caloric intake for at least 8 hours. Fasting glucose between 100 mg/dl to 125 mg/dl is diagnostic of prediabetes. In a patient with classic symptoms of hyperglycemia or hyperglycemic crisis, a random glucose >/= 200 mg/dl is diagnostic for diabetes. In the absence of unequivocal hyperglycemia, results should be confirmed by repeat testing. The classification and Diagnosis of Diabetes Diabetes Care 2021; 46: S19-S40. Current interpretive data was last revised 2022. Calcium 9.1 8.5 - 10.3 mg/dL [facility] Bilirubin, total 0.3 0.1 - 1.2 mg/dL [facility] Protein, pl 6.3(L) 6.5 - 8.5 g/dL [facility] Albumin 4.1 3.5 - 5.0 g/dL [facility] Alk phos 99 40 - 130 Units/L [facility] ALT 36 7 - 55 Units/L [facility] AST 27 10 - 50 Units/L [facility] Blood 02/10/2025 3:12 AM CDT 02/10/2025 3:41 AM CDT Carlton Sahu DO LAB BLOOD ORDERABLES Fi nal Result [facility] [address] [facility] Department [place] [address] * Lactate (02/09/2025 10:41 AM CDT) Lactate 1.4 0.7 - 2.0 mmol/L Blood 02/09/2025 10:4 1 AM CDT 02/09/2025 10:46 AM CDT Carlton Donavan Sanabriaurayil DO LAB BLOOD ORDERABLES Fi nal Result Performing Organization Address [facility] de Phone Number DONALD [address] [employer] [place] [address] * eGFR (02/09/2025 10:41 AM CDT) eGFR >90 >=60 mL/min/1. 73 m2 Comment: Interpretive Data Reference Interval Normal >/= 90 mL/min/1.73m2 Mildly decreased* 60 - 89 mL/min/1.73m2 Mildly to moderately decreased 45 - 59 mL/min/1.73m2 Moderately to severely decreased 30 - 44 mL/min/1.73m2 Severely decreased 15 - 29 mL/min/1.73m2 Kidney Failure < 15 mL/min/1.73m2 *Relative to young adult level Estimated glomerular filtration rate is determined by the 2020 CKD-EPI equation recommended by the National Kidney Foundation (A Unifying Approach to GFR Estimation: Recommendations of the NKF-ASK Task Force on Reassessing the Inclusion of Race in Diagnosing Kidney Disease, JASN 2020). The CKD-EPI equation should not be used for patients with unstable renal function and has not been validated in children and those over 70. Current interpretive data was last reviewed 2021. Blood 02/09/2025 10:4 1 AM CDT 02/09/2025 10:49 AM CDT Carlton Donavan Sanabriaurayil DO LAB BLOOD ORDERABLES Fi nal Result Performing Organization Address [facility] de Phone Number DONALD [address] Department of [employer] [place] [address] * (ABNORMAL) Differential, auto (02/09/2025 10:41 AM CDT) Neutrophil abs 7.71(H) 1.50 - 6.50 K/cumm Imm gran abs 0.03 0.00 - 0.10 K/cumm [facility] Lymphocyte abs 2.00 0.80 - 3.30 K/cumm [facility] Monocyte abs 0.60 0.20 - 0.80 K/cumm [facility] Eosinophil abs 0.19 0.00 - 0.50 K/cumm [facility] Basophil abs 0.04 0.00 - 0.10 K/cumm [facility] Neutrophil pct 72.9 % [facility] Comment: Interpretive Data Percent cell count reference ranges are not reported, since discordance with absolute values may lead to misinterpretation of CBC data. Current Interpretive Data was last revised on 2017. Imm gran pct 0.3 % [facility] Comment: Interpretive Data Percent cell count reference ranges are not reported, since discordance with absolute values may lead to misinterpretation of CBC data. Current Interpretive Data was last revised on 2017. Lymphocyte pct 18.9 % [facility] Comment: Interpretive Data Percent cell count reference ranges are not reported, since discordance with absolute values may lead to misinterpretation of CBC data. Current Interpretive Data was last revised on 2017. Monocyte pct 5.7 % [facility] Comment: Interpretive Data Percent cell count reference ranges are not reported, since discordance with absolute values may lead to misinterpretation of CBC data. Current Interpretive Data was last revised on 2017. Eosinophil pct 1.8 % [facility] Comment: Interpretive Data Percent cell count reference ranges are not reported, since discordance with absolute values may lead to misinterpretation of CBC data. Current Interpretive Data was last revised on 2017. Basophil pct 0.4 % [facility] Comment: Interpretive Data Percent cell count reference ranges are not reported, since discordance with absolute values may lead to misinterpretation of CBC data. Current Interpretive Data was last revised on 2017. Blood 02/09/2025 10:4 1 AM CDT 02/09/2025 10:49 AM CDT Carlton Sahu DO LAB BLOOD ORDERABLES Fi nal Result DONALD CARTER [address] [facility] Department [place] [address] * (ABNORMAL) CBC with auto differential (02/09/2025 10:41 AM CDT) [facility] WBC 10.57(H) 3.80 - 9.90 K/cumm Hgb 14.6 13.0 - 17.5 g/dL [facility] Hct 43.7 38.9 - 50.3 % [facility] Plt 360 150 - 400 K/cumm [facility] MPV 9.4 9.1 - 12.3 fL [facility] RBC 5.06 4.30 - 5.80 M/cumm [facility] MCV 86.4 81.3 - 96.4 fL [facility] MCH 28.9 27.1 - 33.3 pg [facility] MCHC 33.4 32.3 - 35.7 g/dL [facility] RDW CV 14.0 11.1 - 14.9 % [facility] RDW SD 44.0 35.7 - 48.1 fL [facility] NRBC abs 0.00 0.00 - 0.01 K/cumm [facility] Blood 02/09/2025 10:4 1 AM CDT 02/09/2025 10:49 AM CDT Carlton Sahu DO LAB BLOOD ORDERABLES Fi nal Result Performing Organization Address [facility] Co de Phone Number [address] [place] [address] * Magnesium (02/09/2025 10:41 AM CDT) [facility] Magnesium 2.1 1.4 - 2.5 mg/dL Blood 02/09/2025 10:4 1 AM CDT 02/09/2025 10:49 AM CDT [employer] Don[employer] DO LAB BLOOD ORDERABLES Fi nal Result Performing Organization Address [facility] Co de Phone Number [address] [employer] [place] [address] * Comprehensive metabolic panel (02/09/2025 10:41 AM CDT) [facility] Sodium 141 135 - 145 mmol/L Potassium, pl 3.9 3.3 - 4.9 mmol/L [facility] Chloride 105 97 - 110 mmol/L [facility] CO2 26 22 - 32 mmol/L [facility] Anion gap 10 2 - 15 mmol/L [facility] BUN 20 6 - 25 mg/dL [facility] Creatinine 1.00 0.80 - 1.30 mg/dL [facility] Glucose 190 70 - 199 mg/dL [facility] Comment: Delta - Results Reviewed Interpretive Data Fasting glucose >/= 126 mg/dl is diagnostic for diabetes. Fasting is defined as no caloric intake for at least 8 hours. Fasting glucose between 100 mg/dl to 125 mg/dl is diagnostic of prediabetes. In a patient with classic symptoms of hyperglycemia or hyperglycemic crisis, a random glucose >/= 200 mg/dl is diagnostic for diabetes. In the absence of unequivocal hyperglycemia, results should be confirmed by repeat testing. The classification and Diagnosis of Diabetes Diabetes Care 202; 46: S19-S40. Current interpretive data was last revised 2022. Calcium 9.2 8.5 - 10.3 mg/dL [facility] Bilirubin, total 0.4 0.1 - 1.2 mg/dL [facility] Protein, pl 6.6 6.5 - 8.5 g/dL [facility] Albumin 4.1 3.5 - 5.0 g/dL [facility] Alk phos 97 40 - 130 Units/L [facility] ALT 36 7 - 55 Units/L [facility] AST 31 10 - 50 Units/L [facility] Blood 02/09/2025 10:4 1 AM CDT 02/09/2025 10:49 AM CDT us Carlton Sahu DO LAB BLOOD ORDERABLES Fi nal Result [facility] [address] [facility] Department [place] [address] * (ABNORMAL) Lactate (02/08/2025 5:33 PM CDT) Lactate 2.2(H) 0.7 - 2.0 mmol/L Blood 02/08/2025 5:33 PM CDT 02/08/2025 5:36 PM CDT Carlton SKera Sahu DO LAB BLOOD ORDERABLES Fi nal Result DONALD [address] [facility] Department [place] [address] * Drugs of Abuse Screen, Urine with Reflex Confirmation (02/08/2025 11:12 AM CDT) Pathologist [facility] Amphetamine, ur Not Detected CutOff 500ng/mL Comment: Interpretive Data - Amphetamines: Samples containing greater than 500 ng/mL d-methamphetamine or other cross-reacting amphetamine compounds are reported as positive. Amphetamine immunoassays are subject to significant false positive rates due to cross-reactivity of non-amphetamine drugs. Confirmatory testing required for definitive results. Current Interpretive Data was last reviewed 2023. Barbiturates, ur Not Detected CutOff 200ng/mL DONALD Comment: Interpretive Data - Barbiturates: Samples containing greater than 200 ng/mL secobarbital or other cross-reacting barbiturate compounds are reported as positive. False positive and false negative results are possible. Confirmatory testing required for definitive results. Current Interpretive Data was last reviewed 2023. Benzodiazepines, ur Not Detected CutOff 100ng/mL DONALD Comment: Interpretive Data - Benzodiazepines: Samples containing greater than 100 ng/mL nordiazepam or other cross-reacting compounds are reported as positive. False positive and false negative results are possible. Confirmatory testing required for definitive results. Current Interpretive Data was last reviewed 2023. Cannabinoids, ur Not Detected CutOff 50 ng/mL DONALD Comment: Interpretive Data - Cannabinoids: Samples containing greater than 50 ng/mL delta-9 THC -COOH or other cross- reacting compounds are reported as positive. False positive and false negative results are possible. Confirmatory testing required for definitive results. Current Interpretive Data was last reviewed 2023. Cocaine, ur Not Detected CutOff 150ng/mL [facility] Comment: Interpretive Data - Cocaine: Samples containing greater than 150 ng/mL benzoylecgonine or other cross- reacting compounds are reported as positive. False positive and false negative results are possible. Confirmatory testing required for definitive results. Current Interpretive Data was last reviewed 2023. Fentanyl, Ur Not Detected CutOff 5 ng/mL DONALD Comment: Interpretive Data - Fentanyl: Samples containing greater than 5 ng/mL norfentanyl, fentanyl, or other cross-reacting fentanyl compounds are reported as positive. False positive and false negative results are possible. Confirmatory testing required for definitive results. Current Interpretive Data was last reviewed 2023. Methadone, ur Not Detected CutOff 300ng/mL DONALD Comment: Interpretive Data - Methadone: Samples containing greater than 300 ng/mL d,l-methadone or other cross-reacting compounds are reported as positive. False positive and false negative results are possible. Confirmatory testing required for definitive results. Current Interpretive Data was last reviewed 2023. Opiates, ur Not Detected CutOff 300ng/mL DONALD Comment: Interpretive Data - Opiates: Samples containing greater than 300 ng/mL morphine or other cross-reacting compounds are reported as positive. False positive and false negative results are possible. Confirmatory testing required for definitive results. Current Interpretive Data was last reviewed 2023. Oxycodone, ur Not Detected CutOff 100ng/mL DONALD Comment: Interpretive Data - Oxycodone: Samples containing greater than 100 ng/mL oxycodone or other cross-reacting compounds are reported as positive. False positive and false negative results are possible. Confirmatory testing required for definitive results. Current Interpretive Data was last reviewed 2023. Phencyclidine, ur Not Detected CutOff 25 ng/mL DONALD Comment: Interpretive Data - Phencyclidine: Samples containing greater than 25 ng/mL phencyclidine or other cross-reacting compounds are reported as positive. False positive and false negative results are possible. Confirmatory testing required for definitive results. Current Interpretive Data was last reviewed 2023. Urine Creatinine 25 mg/dL DONALD Comment: Interpretive Data Urine Creatinine: < 10 mg/dL is extremely dilute = or > 10 but < 20 mg/dL is dilute = or > 20 mg/dL is normal Current Interpretive Data was last revised on 2017. Urine 02/08/2025 11:1 2 AM CDT 02/08/2025 11:23 AM CDT Narrative [facility] - 02/08/2025 11:48 AM CDT Drug of Abuse screening is performed by immunoassay for medical purposes only. This is not to be used for Pain Management purposes. If Detected, confirmation testing will be performed for Amphetamines, Cocaine, Fentanyl, Methadone, Opiates, Oxycodone or Phencyclidine. Carlton Sahu LAB URINE ORDERABLES Fi nal Result Performing Organization Address [facility] Co de Phone Number [address] [place] [address] * Urinalysis reflex to microscopic and culture Urine (02/08/2025 11:12 AM CDT) Color, ur Straw Yellow Clarity, ur Clear Clear [facility] Specific gravity, ur 1.004 1.003 - 1.030 [facility] pH, urine 5.5 [facility] Comment: Interpretive Data U rine pH is affected by diet, medications, systemic acid-base disturbances, and renal tubular function. pH may affect urinary stone formation. For example, urine pH below 6.0 may help reduce the tendency for calcium phosphate stones and pH greater than 6.0 may reduce the tendency for uric acid stone formation. Source: [facility] Current Interpretive Data was last revised on 2017 Protein, ur ql Negative Negative [facility] Glucose, ur ql Negative Negative [facility] Ketones, ur Negative Negative [facility] Bilirubin, ur Negative Negative [facility] Blood, ur Negative Negative [facility] Urobilinogen, ur <2.0 <2.0 mg/dL [facility] Nitrite, ur Negative Negative [facility] Leukocyte esterase, ur Negative Negative [facility] UA reflex comment Reflex conditions for microscopic UA and culture not met. [facility] Urine 02/08/2025 11:1 2 AM CDT 02/08/2025 11:23 AM CDT Carlton Sahu [facility] MICROBIOLOGY - GENE RAL ORDERABLES Final Result Performing Organization Address [facility]/ZIP Co de Phone Number [facility] [address] [facility] [place] [address] * eGFR (02/08/2025 11:01 AM CDT) [facility] eGFR >90 >=60 mL/min/1. 73 m2 Comment: Interpretive Data Reference Interval Normal >/= 90 mL/min/1.73m2 Mildly decreased* 60 - 89 mL/min/1.73m2 Mildly to moderately decreased 45 - 59 mL/min/1.73m2 Moderately to severely decreased 30 - 44 mL/min/1.73m2 Severely decreased 15 - 29 mL/min/1.73m2 Kidney Failure < 15 mL/min/1.73m2 *Relative to young adult level Estimated glomerular filtration rate is determined by the 2020 CKD-EPI equation recommended by the National Kidney Foundation (A Unifying Approach to GFR Estimation: Recommendations of the NKF-ASK Task Force on Reassessing the Inclusion of Race in Diagnosing Kidney Disease, JASN 2020). The CKD-EPI equation should not be used for patients with unstable renal function and has not been validated in children and those over 70. Current interpretive data was last reviewed 2021. Blood 02/08/2025 11:0 1 AM CDT 02/08/2025 11:18 AM CDT us Carlton Sahu DO LAB BLOOD ORDERABLES nal Result [facility] [address] [facility] [place] [address] * (ABNORMAL) Differential, auto (02/08/2025 11:01 AM CDT) [facility] Neutrophil abs 10.61(H) 1.50 - 6.50 K/cumm Imm gran abs 0.04 0.00 - 0.10 K/cumm [facility] Lymphocyte abs 3.69(H) 0.80 - 3.30 K/cumm [facility] Monocyte abs 0.60 0.20 - 0.80 K/cumm [facility] Eosinophil abs 0.07 0.00 - 0.50 K/cumm [facility] Basophil abs 0.05 0.00 - 0.10 K/cumm [facility] Neutrophil pct 70.4 % [facility] Comment: Interpretive Data Percent cell count reference ranges are not reported, since discordance with absolute values may lead to misinterpretation of CBC data. Current Interpretive Data was last revised on 2017. Imm gran pct 0.3 % [facility] Comment: Interpretive Data Percent cell count reference ranges are not reported, since discordance with absolute values may lead to misinterpretation of CBC data. Current Interpretive Data was last revised on 2017. Lymphocyte pct 24.5 % [facility] Comment: Interpretive Data Percent cell count reference ranges are not reported, since discordance with absolute values may lead to misinterpretation of CBC data. Current Interpretive Data was last revised on 2017. Monocyte pct 4.0 % [facility] Comment: Interpretive Data Percent cell count reference ranges are not reported, since discordance with absolute values may lead to misinterpretation of CBC data. Current Interpretive Data was last revised on 2017. Eosinophil pct 0.5 % [facility] Comment: Interpretive Data Percent cell count reference ranges are not reported, since discordance with absolute values may lead to misinterpretation of CBC data. Current Interpretive Data was last revised on 2017. Basophil pct 0.3 % [facility] Comment: Interpretive Data Percent cell count reference ranges are not reported, since discordance with absolute values may lead to misinterpretation of CBC data. Current Interpretive Data was last revised on 2017. Blood 02/08/2025 11:0 1 AM CDT 02/08/2025 11:18 AM CDT Carlton Sahu DO LAB BLOOD ORDERABLES Fi nal Result [facility] [address] [facility] [place] [address] * (ABNORMAL) CBC with auto differential (02/08/2025 11:01 AM CDT) WBC 15.06(H) 3.80 - 9.90 K/cumm Hgb 15.4 13.0 - 17.5 g/dL [facility] Hct 45.2 38.9 - 50.3 % [facility] Plt 373 150 - 400 K/cumm [facility] MPV 9.3 9.1 - 12.3 fL [facility] RBC 5.34 4.30 - 5.80 M/cumm [facility] MCV 84.6 81.3 - 96.4 fL [facility] MCH 28.8 27.1 - 33.3 pg [facility] MCHC 34.1 32.3 - 35.7 g/dL [facility] RDW CV 14.2 11.1 - 14.9 % [facility] RDW SD 43.9 35.7 - 48.1 fL [facility] NRBC abs 0.00 0.00 - 0.01 K/cumm [facility] Blood 02/08/2025 11:0 1 AM CDT 02/08/2025 11:18 AM CDT Carlton Sahu DO LAB BLOOD ORDERABLES Fi nal Result Performing Organization Address [facility] de Phone Number [address] [place] [address] * (ABNORMAL) Ethanol (02/08/2025 11:01 AM CDT) Ethanol 189(H) <=10 mg/dL Comment: Interpretive Data Legal limit of intoxication > or = 80 mg/dL Levels > or = 400 mg/dL are potentially TOXIC. Current interpretive data was last revised on 2018. Blood 02/08/2025 11:0 1 AM CDT 02/08/2025 11:18 AM CDT Carlton Sahu DO LAB BLOOD ORDERABLES Fi nal Result Performing Organization Address [facility] Co de Phone Number [address] [place] [address] * (ABNORMAL) Comprehensive metabolic panel (02/08/2025 11:01 AM CDT) Sodium 140 135 - 145 mmol/L Potassium, pl 4.3 3.3 - 4.9 mmol/L [facility] Chloride 101 97 - 110 mmol/L [facility] CO2 23 22 - 32 mmol/L [facility] Anion gap 16(H) 2 - 15 mmol/L [facility] BUN 15 6 - 25 mg/dL [facility] Creatinine 0.97 0.80 - 1.30 mg/dL [facility] Glucose 84 70 - 199 mg/dL [facility] Comment: Interpretive Data Fasting glucose >/= 126 mg/dl is diagnostic for diabetes. Fasting is defined as no caloric intake for at least 8 hours. Fasting glucose between 100 mg/dl to 125 mg/dl is diagnostic of prediabetes. In a patient with classic symptoms of hyperglycemia or hyperglycemic crisis, a random glucose >/= 200 mg/dl is diagnostic for diabetes. In the absence of unequivocal hyperglycemia, results should be confirmed by repeat testing. The classification and Diagnosis of Diabetes Diabetes Care 202; 46: S19-S40. Current interpretive data was last revised 2022. Calcium 9.7 8.5 - 10.3 mg/dL [facility] Bilirubin, total 0.4 0.1 - 1.2 mg/dL [facility] Protein, pl 7.9 6.5 - 8.5 g/dL [facility] Albumin 5.1(H) 3.5 - 5.0 g/dL [facility] Alk phos 116 40 - 130 Units/L [facility] ALT 43 7 - 55 Units/L [facility] AST 36 10 - 50 Units/L [facility] Blood 02/08/2025 11:0 1 AM CDT 02/08/2025 11:18 AM CDT Carlton Sahu DO LAB BLOOD ORDERABLES Fi nal Result DONALD [address] [facility] [place] [address] * (ABNORMAL) Ethanol (02/08/2025 12:28 AM CDT) Ethanol 88(H) <=10 mg/dL Comment: Interpretive Data Legal limit of intoxication > or = 80 mg/dL Levels > or = 400 mg/dL are potentially TOXIC. Current interpretive data was last revised on 2018. Blood 02/08/2025 12:2 8 AM CDT 02/08/2025 12:30 AM CDT Camron LITTLE LAB BLOOD ORDERA BLES Final Result DONALD LEONARD ([place]) [address] [facility] [place] [address] * (ABNORMAL) Drugs of Abuse Screen, Urine without Confirmation (02/07/2025 3:33 PM CDT) [facility] Amphetamine, ur Not Detected CutOff 500ng/mL Comment: Interpretive Data - Amphetamines: Samples containing greater than 500 ng/mL d-methamphetamine or other cross-reacting amphetamine compounds are reported as positive. Amphetamine immunoassays are subject to significant false positive rates due to cross-reactivity of non-amphetamine drugs. Confirmatory testing required for definitive results. Current Interpretive Data was last reviewed 2023. Barbiturates, ur Not Detected CutOff 200ng/mL DONALD VALLE ([place]) Comment: Interpretive Data - Barbiturates: Samples containing greater than 200 ng/mL secobarbital or other cross-reacting barbiturate compounds are reported as positive. False positive and false negative results are possible. Confirmatory testing required for definitive results. Current Interpretive Data was last reviewed 2023. Benzodiazepines, ur Not Detected CutOff 100ng/mL [facility] ([place]) Comment: Interpretive Data - Benzodiazepines: Samples containing greater than 100 ng/mL nordiazepam or other cross-reacting compounds are reported as positive. False positive and false negative results are possible. Confirmatory testing required for definitive results. Current Interpretive Data was last reviewed 2023. Cannabinoids, ur Not Detected CutOff 50 ng/mL [facility] ([place]) Comment: Interpretive Data - Cannabinoids: Samples containing greater than 50 ng/mL delta-9 THC -COOH or other cross- reacting compounds are reported as positive. False positive and false negative results are possible. Confirmatory testing required for definitive results. Current Interpretive Data was last reviewed 2023. Cocaine, ur Not Detected CutOff 150ng/mL [facility] ([place]) Comment: Interpretive Data - Cocaine: Samples containing greater than 150 ng/mL benzoylecgonine or other cross- reacting compounds are reported as positive. False positive and false negative results are possible. Confirmatory testing required for definitive results. Current Interpretive Data was last reviewed 2023. Fentanyl, Ur Not Detected CutOff 5 ng/mL [facility] ([place]) Comment: Interpretive Data - Fentanyl: Samples containing greater than 5 ng/mL norfentanyl, fentanyl, or other cross-reacting fentanyl compounds are reported as positive. False positive and false negative results are possible. Confirmatory testing required for definitive results. Current Interpretive Data was last reviewed 2023. Methadone, ur Not Detected CutOff 300ng/mL [facility] ([place]) Comment: Interpretive Data - Methadone: Samples containing greater than 300 ng/mL d,l-methadone or other cross-reacting compounds are reported as positive. False positive and false negative results are possible. Confirmatory testing required for definitive results. Current Interpretive Data was last reviewed 2023. Opiates, ur Not Detected CutOff 300ng/mL [facility] ([place]) Comment: Interpretive Data - Opiates: Samples containing greater than 300 ng/mL morphine or other cross-reacting compounds are reported as positive. False positive and false negative results are possible. Confirmatory testing required for definitive results. Current Interpretive Data was last reviewed 2023. Oxycodone, ur Screen Positive, presumptive (A) CutOff 100ng/mL [facility] ([place]) Comment: Interpretive Data - Oxycodone: Samples containing greater than 100 ng/mL oxycodone or other cross-reacting compounds are reported as positive. False positive and false negative results are possible. Confirmatory testing required for definitive results. Current Interpretive Data was last reviewed 2023. Phencyclidine, ur Not Detected CutOff 25 ng/mL [facility] ([place]) Comment: Interpretive Data - Phencyclidine: Samples containing greater than 25 ng/mL phencyclidine or other cross-reacting compounds are reported as positive. False positive and false negative results are possible. Confirmatory testing required for definitive results. Current Interpretive Data was last reviewed 2023. Urine Creatinine 23 mg/dL [facility] ([place]) Comment: Interpretive Data Urine Creatinine: < 10 mg/dL is extremely dilute = or > 10 but < 20 mg/dL is dilute = or > 20 mg/dL is normal Current Interpretive Data was last revised on 2017. Urine 02/07/2025 3:33 PM CDT 02/07/2025 3:40 PM CDT Narrative DONALD VALLE ([place]) - 02/07/2025 4:13 PM CDT Drug of Abuse screening is performed by immunoassay for medical purposes only. This is not to be used for Pain Management purposes. Bryson Alex MD LAB URINE ORDERABLES Final R esult Performing Organization Address City/[facility]/ZIP Co de Phone Number DONALD VALLE ([place]) [address] [facility] [place] [address] * eGFR (02/07/2025 12:19 PM CDT) eGFR >90 >=60 mL/min/1. 73 m2 Comment: Interpretive Data Reference Interval Normal >/= 90 mL/min/1.73m2 Mildly decreased* 60 - 89 mL/min/1.73m2 Mildly to moderately decreased 45 - 59 mL/min/1.73m2 Moderately to severely decreased 30 - 44 mL/min/1.73m2 Severely decreased 15 - 29 mL/min/1.73m2 Kidney Failure < 15 mL/min/1.73m2 *Relative to young adult level Estimated glomerular filtration rate is determined by the 2020 CKD-EPI equation recommended by the National Kidney Foundation (A Unifying Approach to GFR Estimation: Recommendations of the NKF-ASK Task Force on Reassessing the Inclusion of Race in Diagnosing Kidney Disease, JASN 1). The CKD-EPI equation should not be used for patients with unstable renal function and has not been validated in children and those over 70. Current interpretive data was last reviewed 2021. Blood 02/07/2025 12:1 9 PM CDT 02/07/2025 12:38 PM CDT Bryson Alex MD LAB BLOOD ORDERABLES Final R esult Performing Organization Address City/[facility]/ZIP Co de Phone Number DONALD VALLE ([place]) [address] [facility] [place] [address] * Differential, auto (02/07/2025 12:19 PM CDT) Neutrophil abs 6.11 1.50 - 6.50 K/cumm Imm gran abs 0.02 0.00 - 0.10 K/cumm [facility] ([place]) Lymphocyte abs 3.24 0.80 - 3.30 K/cumm [facility] ([place]) Monocyte abs 0.50 0.20 - 0.80 K/cumm [facility] ([place]) Eosinophil abs 0.20 0.00 - 0.50 K/cumm [facility] ([place]) Basophil abs 0.03 0.00 - 0.10 K/cumm [facility] ([place]) Neutrophil pct 60.4 % [facility] ([place]) Comment: Interpretive Data Percent cell count reference ranges are not reported, since discordance with absolute values may lead to misinterpretation of CBC data. Current Interpretive Data was last revised on 2017. Imm gran pct 0.2 % [facility] ([place]) Comment: Interpretive Data Percent cell count reference ranges are not reported, since discordance with absolute values may lead to misinterpretation of CBC data. Current Interpretive Data was last revised on 2017. Lymphocyte pct 32.1 % [facility] ([place]) Comment: Interpretive Data Percent cell count reference ranges are not reported, since discordance with absolute values may lead to misinterpretation of CBC data. Current Interpretive Data was last revised on 2017. Monocyte pct 5.0 % [facility] ([place]) Comment: Interpretive Data Percent cell count reference ranges are not reported, since discordance with absolute values may lead to misinterpretation of CBC data. Current Interpretive Data was last revised on 2017. Eosinophil pct 2.0 % [facility] ([place]) Comment: Interpretive Data Percent cell count reference ranges are not reported, since discordance with absolute values may lead to misinterpretation of CBC data. Current Interpretive Data was last revised on 2017. Basophil pct 0.3 % [facility] ([place]) Comment: Interpretive Data Percent cell count reference ranges are not reported, since discordance with absolute values may lead to misinterpretation of CBC data. Current Interpretive Data was last revised on 2017. Blood 02/07/2025 12:1 9 PM CDT 02/07/2025 12:38 PM CDT Bryson Alex MD LAB BLOOD ORDERABLES Final R esult [facility] ([place]) [address] [facility] [place] [address] * (ABNORMAL) CBC with auto differential (02/07/2025 12:19 PM CDT) WBC 10.10(H) 3.80 - 9.90 K/cumm Hgb 15.7 13.0 - 17.5 g/dL [facility] ([place]) Hct 47.0 38.9 - 50.3 % [facility] ([place]) Plt 392 150 - 400 K/cumm [facility] ([place]) MPV 9.4 9.1 - 12.3 fL [facility] ([place]) RBC 5.43 4.30 - 5.80 M/cumm [facility] ([place]) MCV 86.6 81.3 - 96.4 fL [facility] ([place]) MCH 28.9 27.1 - 33.3 pg [facility] ([place]) MCHC 33.4 32.3 - 35.7 g/dL [facility] ([place]) RDW CV 14.3 11.1 - 14.9 % [facility] ([place]) RDW SD 45.2 35.7 - 48.1 fL [facility] ([place]) NRBC abs 0.00 0.00 - 0.01 K/cumm [facility] ([place]) Blood 02/07/2025 12:1 9 PM CDT 02/07/2025 12:38 PM CDT Bryson Alex MD LAB BLOOD ORDERABLES Final R esult [facility] ([place]) [address] [facility] [place] [address] * (ABNORMAL) Ethanol (02/07/2025 12:19 PM CDT) Ethanol 353(C) <=10 mg/dL Comment: Critical Result called by [id number] at 2025-02-07 13:09:02. Result Read Back by Shonda Laureano ED Interpretive Data Legal limit of intoxication > or = 80 mg/dL Levels > or = 400 mg/dL are potentially TOXIC. Current interpretive data was last revised on 2018. Blood 02/07/2025 12:1 9 PM CDT 02/07/2025 12:38 PM CDT us Bryson Alex MD LAB BLOOD ORDERABLES Final R esult [facility] ([place]) [address] [facility] [place] [address] * (ABNORMAL) Comprehensive metabolic panel (02/07/2025 12:19 PM CDT) Sodium 143 135 - 145 mmol/L Potassium, pl 4.3 3.3 - 4.9 mmol/L [facility] ([place]) Chloride 103 97 - 110 mmol/L [facility] ([place]) CO2 23 22 - 32 mmol/L [facility] ([place]) Anion gap 17(H) 2 - 15 mmol/L [facility] ([place]) BUN 9 6 - 25 mg/dL [facility] ([place]) Creatinine 0.96 0.80 - 1.30 mg/dL [facility] ([place]) Glucose 95 70 - 199 mg/dL [facility] ([place]) Comment: Interpretive Data Fasting glucose >/= 126 mg/dl is diagnostic for diabetes. Fasting is defined as no caloric intake for at least 8 hours. Fasting glucose between 100 mg/dl to 125 mg/dl is diagnostic of prediabetes. In a patient with classic symptoms of hyperglycemia or hyperglycemic crisis, a random glucose >/= 200 mg/dl is diagnostic for diabetes. In the absence of unequivocal hyperglycemia, results should be confirmed by repeat testing. The classification and Diagnosis of Diabetes Diabetes Care 2021; 46: S19-S40. Current interpretive data was last revised 2022. Calcium 9.4 8.5 - 10.3 mg/dL [facility] ([place]) Bilirubin, total 0.2 0.1 - 1.2 mg/dL [facility] ([place]) Protein, pl 7.8 6.5 - 8.5 g/dL [facility] ([place]) Albumin 4.7 3.5 - 5.0 g/dL [facility] ([place]) Alk phos 98 40 - 130 Units/L [facility] ([place]) ALT 39 7 - 55 Units/L [facility] ([place]) AST 27 10 - 50 Units/L [facility] ([place]) Blood 02/07/2025 12:1 9 PM CDT 02/07/2025 12:38 PM CDT Bryson Alex MD LAB BLOOD ORDERABLES Final R esult [facility] ([place]) [address] [facility] [place] [address] * eGFR (12/13/2024 3:12 AM CDT) eGFR 86 >=60 mL/min/1. 73 m2 Comment: Interpretive Data Reference Interval Normal >/= 90 mL/min/1.73m2 Mildly decreased* 60 - 89 mL/min/1.73m2 Mildly to moderately decreased 45 - 59 mL/min/1.73m2 Moderately to severely decreased 30 - 44 mL/min/1.73m2 Severely decreased 15 - 29 mL/min/1.73m2 Kidney Failure < 15 mL/min/1.73m2 *Relative to young adult level Estimated glomerular filtration rate is determined by the 2020 CKD-EPI equation recommended by the National Kidney Foundation (A Unifying Approach to GFR Estimation: Recommendations of the NKF-ASK Task Force on Reassessing the Inclusion of Race in Diagnosing Kidney Disease, JASN 2020). The CKD-EPI equation should not be used for patients with unstable renal function and has not been validated in children and those over 70. Current interpretive data was last reviewed 2021. Blood 12/13/2024 3:12 AM CDT 12/13/2024 4:06 AM CDT us Davidhamletgt Charissamariza Garibay NP LAB BLOOD ORDERABLES Final Result DONALD [address] [facility] [place] [address] * (ABNORMAL) Differential, auto (12/13/2024 3:12 AM CDT) Neutrophil abs 5.33 1.50 - 6.50 K/cumm Imm gran abs 0.05 0.00 - 0.10 K/cumm [facility] Lymphocyte abs 3.47(H) 0.80 - 3.30 K/cumm [facility] Monocyte abs 1.00(H) 0.20 - 0.80 K/cumm [facility] Eosinophil abs 0.35 0.00 - 0.50 K/cumm [facility] Basophil abs 0.04 0.00 - 0.10 K/cumm [facility] Neutrophil pct 52.0 % [facility] Comment: Interpretive Data Percent cell count reference ranges are not reported, since discordance with absolute values may lead to misinterpretation of CBC data. Current Interpretive Data was last revised on 2017. Imm gran pct 0.5 % [facility] Comment: Interpretive Data Percent cell count reference ranges are not reported, since discordance with absolute values may lead to misinterpretation of CBC data. Current Interpretive Data was last revised on 2017. Lymphocyte pct 33.9 % [facility] Comment: Interpretive Data Percent cell count reference ranges are not reported, since discordance with absolute values may lead to misinterpretation of CBC data. Current Interpretive Data was last revised on 2017. Monocyte pct 9.8 % [facility] Comment: Interpretive Data Percent cell count reference ranges are not reported, since discordance with absolute values may lead to misinterpretation of CBC data. Current Interpretive Data was last revised on 2017. Eosinophil pct 3.4 % [facility] Comment: Interpretive Data Percent cell count reference ranges are not reported, since discordance with absolute values may lead to misinterpretation of CBC data. Current Interpretive Data was last revised on 2017. Basophil pct 0.4 % [facility] Comment: Interpretive Data Percent cell count reference ranges are not reported, since discordance with absolute values may lead to misinterpretation of CBC data. Current Interpretive Data was last revised on 2017. Blood 12/13/2024 3:12 AM CDT 12/13/2024 4:06 AM CDT Addy Garibay BLOOD SPLATTER ANALYST LAB BLOOD ORDERABLES Final Result Performing Organization Address City/[facility] Co de Phone Number DONALD [address] [employer] [place] [address] * (ABNORMAL) CBC with auto differential (12/13/2024 3:12 AM CDT) [facility] WBC 10.24(H) 3.80 - 9.90 K/cumm Hgb 13.9 13.0 - 17.5 g/dL [facility] Hct 41.7 38.9 - 50.3 % [facility] Plt 247 150 - 400 K/cumm [facility] MPV 9.7 9.1 - 12.3 fL [facility] RBC 4.70 4.30 - 5.80 M/cumm [facility] MCV 88.7 81.3 - 96.4 fL [facility] MCH 29.6 27.1 - 33.3 pg [facility] MCHC 33.3 32.3 - 35.7 g/dL [facility] RDW CV 13.9 11.1 - 14.9 % [facility] RDW SD 44.9 35.7 - 48.1 fL [facility] NRBC abs 0.00 0.00 - 0.01 K/cumm [facility] Blood 12/13/2024 3:12 AM CDT 12/13/2024 4:06 AM CDT Addy Garibay BLOOD SPLATTER ANALYST LAB BLOOD ORDERABLES Final Result Performing Organization Address [facility] Co de Phone Number [address] of [employer] [place] [address] * Phosphorus (12/13/2024 3:12 AM CDT) [facility] Phosphorus, pl 3.6 2.3 - 4.5 mg/dL Blood 12/13/2024 3:12 AM CDT 12/13/2024 4:06 AM CDT Addy Garibay BLOOD SPLATTER ANALYST LAB BLOOD ORDERABLES Final Result Performing Organization Address [facility] de Phone Number [address] [address] * Magnesium (12/13/2024 3:12 AM CDT) [facility] Magnesium 1.8 1.4 - 2.5 mg/dL Blood 12/13/2024 3:12 AM CDT 12/13/2024 4:06 AM CDT Addy Garibay BLOOD SPLATTER ANALYST LAB BLOOD ORDERABLES Final Result Performing Organization Address [facility] de Phone Number [address] [address] * Basic metabolic panel (12/13/2024 3:12 AM CDT) [facility] Sodium 140 135 - 145 mmol/L Potassium, pl 4.1 3.3 - 4.9 mmol/L [facility] Chloride 104 97 - 110 mmol/L [facility] CO2 28 22 - 32 mmol/L [facility] Anion gap 8 2 - 15 mmol/L [facility] BUN 20 6 - 25 mg/dL [facility] Creatinine 1.12 0.80 - 1.30 mg/dL [facility] Glucose 95 70 - 199 mg/dL [facility] Comment: Interpretive Data Fasting glucose >/= 126 mg/dl is diagnostic for diabetes. Fasting is defined as no caloric intake for at least 8 hours. Fasting glucose between 100 mg/dl to 125 mg/dl is diagnostic of prediabetes. In a patient with classic symptoms of hyperglycemia or hyperglycemic crisis, a random glucose >/= 200 mg/dl is diagnostic for diabetes. In the absence of unequivocal hyperglycemia, results should be confirmed by repeat testing. The classification and Diagnosis of Diabetes Diabetes Care 2021; 46: S19-S40. Current interpretive data was last revised 2022. Calcium 9.0 8.5 - 10.3 mg/dL [facility] Blood 12/13/2024 3:12 AM CDT 12/13/2024 4:06 AM CDT Addy Garibay NP LAB BLOOD ORDERABLES Final Result Performing Organization Address [facility] Co de Phone Number [address] [place] [address] * Urinalysis reflex to microscopic and culture Urine (12/12/2024 11:56 AM CDT) Color, ur Straw Yellow Clarity, ur Clear Clear [facility] Specific gravity, ur 1.003 1.003 - 1.030 [facility] pH, urine 6.0 [facility] Comment: Interpretive Data U rine pH is affected by diet, medications, systemic acid-base disturbances, and renal tubular function. pH may affect urinary stone formation. For example, urine pH below 6.0 may help reduce the tendency for calcium phosphate stones and pH greater than 6.0 may reduce the tendency for uric acid stone formation. Source: [facility] Current Interpretive Data was last revised on 2017 Protein, ur ql Negative Negative [facility] Glucose, ur ql Negative Negative [facility] Ketones, ur Negative Negative [facility] Bilirubin, ur Negative Negative [facility] Blood, ur Negative Negative [facility] Urobilinogen, ur <2.0 <2.0 mg/dL [facility] Nitrite, ur Negative Negative [facility] Leukocyte esterase, ur Negative Negative [facility] UA reflex comment Reflex conditions for microscopic UA and culture not met. [facility] Urine 12/12/2024 11:5 6 AM CDT 12/12/2024 11:58 AM CDT Troy Love MD LAB MICROBIOLOGY - GENER AL ORDERABLES Final Result Performing Organization Address City/[facility]/ZIP Co de Phone Number [facility] [address] [place] [address] [place] [address] * (ABNORMAL) Drugs of Abuse Screen, Urine without Confirmation (12/12/2024 11:56 AM CDT) [facility] Amphetamine, ur Not Detected CutOff 500ng/mL Comment: Interpretive Data - Amphetamines: Samples containing greater than 500 ng/mL d-methamphetamine or other cross-reacting amphetamine compounds are reported as positive. Amphetamine immunoassays are subject to significant false positive rates due to cross-reactivity of non-amphetamine drugs. Confirmatory testing required for definitive results. Current Interpretive Data was last reviewed 2023. Barbiturates, ur Not Detected CutOff 200ng/mL [facility] Comment: Interpretive Data - Barbiturates: Samples containing greater than 200 ng/mL secobarbital or other cross-reacting barbiturate compounds are reported as positive. False positive and false negative results are possible. Confirmatory testing required for definitive results. Current Interpretive Data was last reviewed 2023. Benzodiazepines, ur Screen Positive, presumptive (A) CutOff 100ng/mL [facility] Comment: Interpretive Data - Benzodiazepines: Samples containing greater than 100 ng/mL nordiazepam or other cross-reacting compounds are reported as positive. False positive and false negative results are possible. Confirmatory testing required for definitive results. Current Interpretive Data was last reviewed 2023. Cannabinoids, ur Not Detected CutOff 50 ng/mL [facility] Comment: Interpretive Data - Cannabinoids: Samples containing greater than 50 ng/mL delta-9 THC -COOH or other cross- reacting compounds are reported as positive. False positive and false negative results are possible. Confirmatory testing required for definitive results. Current Interpretive Data was last reviewed 2023. Cocaine, ur Not Detected CutOff 150ng/mL [facility] Comment: Interpretive Data - Cocaine: Samples containing greater than 150 ng/mL benzoylecgonine or other cross- reacting compounds are reported as positive. False positive and false negative results are possible. Confirmatory testing required for definitive results. Current Interpretive Data was last reviewed 2023. Fentanyl, Ur Not Detected CutOff 5 ng/mL [facility] Comment: Interpretive Data - Fentanyl: Samples containing greater than 5 ng/mL norfentanyl, fentanyl, or other cross-reacting fentanyl compounds are reported as positive. False positive and false negative results are possible. Confirmatory testing required for definitive results. Current Interpretive Data was last reviewed 2023. Methadone, ur Not Detected CutOff 300ng/mL DONALD Comment: Interpretive Data - Methadone: Samples containing greater than 300 ng/mL d,l-methadone or other cross-reacting compounds are reported as positive. False positive and false negative results are possible. Confirmatory testing required for definitive results. Current Interpretive Data was last reviewed 2023. Opiates, ur Not Detected CutOff 300ng/mL [facility]AL[facility] Comment: Interpretive Data - Opiates: Samples containing greater than 300 ng/mL morphine or other cross-reacting compounds are reported as positive. False positive and false negative results are possible. Confirmatory testing required for definitive results. Current Interpretive Data was last reviewed 2023. Oxycodone, ur Not Detected CutOff 100ng/mL DONALD Comment: Interpretive Data - Oxycodone: Samples containing greater than 100 ng/mL oxycodone or other cross-reacting compounds are reported as positive. False positive and false negative results are possible. Confirmatory testing required for definitive results. Current Interpretive Data was last reviewed 2023. Phencyclidine, ur Not Detected CutOff 25 ng/mL [facility]ALD Comment: Interpretive Data - Phencyclidine: Samples containing greater than 25 ng/mL phencyclidine or other cross-reacting compounds are reported as positive. False positive and false negative results are possible. Confirmatory testing required for definitive results. Current Interpretive Data was last reviewed 2023. Urine Creatinine 23 mg/dL [facility] Comment: Interpretive Data Urine Creatinine: < 10 mg/dL is extremely dilute = or > 10 but < 20 mg/dL is dilute = or > 20 mg/dL is normal Current Interpretive Data was last revised on 2017. Urine 12/12/2024 11:5 6 AM CDT 12/12/2024 11:58 AM CDT Narrative DONALD - 12/12/2024 12:31 PM CDT Drug of Abuse screening is performed by immunoassay for medical purposes only. This is not to be used for Pain Management purposes. Troy Love MD LAB URINE ORDERABLES Fin al Result DONALD [address] [facility] Department of Laboratories [place] [id number] * eGFR (12/12/2024 11:52 AM CDT) [facility] eGFR >90 >=60 mL/min/1. 73 m2 Comment: Interpretive Data Reference Interval Normal >/= 90 mL/min/1.73m2 Mildly decreased* 60 - 89 mL/min/1.73m2 Mildly to moderately decreased 45 - 59 mL/min/1.73m2 Moderately to severely decreased 30 - 44 mL/min/1.73m2 Severely decreased 15 - 29 mL/min/1.73m2 Kidney Failure < 15 mL/min/1.73m2 *Relative to young adult level Estimated glomerular filtration rate is determined by the 2020 CKD-EPI equation recommended by the National Kidney Foundation (A Unifying Approach to GFR Estimation: Recommendations of the NKF-ASK Task Force on Reassessing the Inclusion of Race in Diagnosing Kidney Disease, JASN 2020). The CKD-EPI equation should not be used for patients with unstable renal function and has not been validated in children and those over 70. Current interpretive data was last reviewed 2021. Blood 12/12/2024 11:5 2 AM CDT 12/12/2024 12:02 PM CDT Troy Love MD LAB BLOOD ORDERABLES Fin al Result [facility] [address] [facility] Department [place] [address] * (ABNORMAL) Differential, auto (12/12/2024 11:52 AM CDT) [facility] Neutrophil abs 6.15 1.50 - 6.50 K/cumm Imm gran abs 0.03 0.00 - 0.10 K/cumm [facility] Lymphocyte abs 4.24(H) 0.80 - 3.30 K/cumm [facility] Monocyte abs 0.67 0.20 - 0.80 K/cumm [facility] Eosinophil abs 0.27 0.00 - 0.50 K/cumm [facility] Basophil abs 0.04 0.00 - 0.10 K/cumm [facility] Neutrophil pct 53.8 % [facility] Comment: Interpretive Data Percent cell count reference ranges are not reported, since discordance with absolute values may lead to misinterpretation of CBC data. Current Interpretive Data was last revised on 2017. Imm gran pct 0.3 % [facility] Comment: Interpretive Data Percent cell count reference ranges are not reported, since discordance with absolute values may lead to misinterpretation of CBC data. Current Interpretive Data was last revised on 2017. Lymphocyte pct 37.2 % [facility] Comment: Interpretive Data Percent cell count reference ranges are not reported, since discordance with absolute values may lead to misinterpretation of CBC data. Current Interpretive Data was last revised on 2017. Monocyte pct 5.9 % [facility] Comment: Interpretive Data Percent cell count reference ranges are not reported, since discordance with absolute values may lead to misinterpretation of CBC data. Current Interpretive Data was last revised on 2017. Eosinophil pct 2.4 % [facility] Comment: Interpretive Data Percent cell count reference ranges are not reported, since discordance with absolute values may lead to misinterpretation of CBC data. Current Interpretive Data was last revised on 2017. Basophil pct 0.4 % [facility] Comment: Interpretive Data Percent cell count reference ranges are not reported, since discordance with absolute values may lead to misinterpretation of CBC data. Current Interpretive Data was last revised on 2017. Blood 12/12/2024 11:5 2 AM CDT 12/12/2024 12:02 PM CDT Troy Love MD LAB BLOOD ORDERABLES Fin al Result [facility] [address] [facility] Department [place] [address] * Thyroid Function [place] (12/12/2024 11:52 AM CDT) TSH 0.53 0.30 - 4.20 mcIUnit/mL Blood 12/12/2024 11:5 2 AM CDT 12/12/2024 12:02 PM CDT Troy Love MD LAB BLOOD ORDERABLES Fin al Result Performing Organization Address [facility] de Phone Number DONALD [address] [address] * (ABNORMAL) CBC with auto differential (12/12/2024 11:52 AM CDT) WBC 11.40(H) 3.80 - 9.90 K/cumm Hgb 14.6 13.0 - 17.5 g/dL [facility] Hct 43.9 38.9 - 50.3 % [facility] Plt 267 150 - 400 K/cumm [facility] MPV 9.3 9.1 - 12.3 fL [facility] RBC 5.12 4.30 - 5.80 M/cumm [facility] MCV 85.7 81.3 - 96.4 fL [facility] MCH 28.5 27.1 - 33.3 pg [facility] MCHC 33.3 32.3 - 35.7 g/dL [facility] RDW CV 14.0 11.1 - 14.9 % [facility] RDW SD 42.9 35.7 - 48.1 fL [facility] NRBC abs 0.00 0.00 - 0.01 K/cumm [facility] Blood Venous blood specimen / Unknown 12/12/2024 11:52 AM CDT 12/12/2024 12:02 PM CDT Troy Love MD LAB BLOOD ORDERABLES Fin al Result Performing Organization Address [facility] Co de Phone Number [address] [employer] [place] [address] * (ABNORMAL) Ethanol (12/12/2024 11:52 AM CDT) Ethanol 289(H) <=10 mg/dL Comment: Interpretive Data Legal limit of intoxication > or = 80 mg/dL Levels > or = 400 mg/dL are potentially TOXIC. Current interpretive data was last revised on 2018. Blood 12/12/2024 11:5 2 AM CDT 12/12/2024 12:02 PM CDT Troy Love MD LAB BLOOD ORDERABLES Fin al Result Performing Organization Address [facility] de Phone Number DONALD [address] [employer] [place] [address] * Acetaminophen level (12/12/2024 11:52 AM CDT) Acetaminophen <5 <=5 mcg/mL Comment: Interpretive Data Significant hepatic injury may occur and treatment with n-acetyl cysteine is generally recommended if the acetaminophen level exceeds: 150 mcg/mL at 4 hours after ingestion 75 mcg/mL at 8 hours after ingestion 38 mcg/mL at 12 hours after ingestion 19 mcg/mL at 16 hours after ingestion Consult toxicology or poison control ([phone]) for unknown ingestion time. Current interpretive data was last revised 2023. Blood 12/12/2024 11:5 2 AM CDT 12/12/2024 12:02 PM CDT Troy Love MD LAB BLOOD ORDERABLES Fin al Result Performing Organization Address [facility] de Phone Number [address] [address] * Salicylate level (12/12/2024 11:52 AM CDT) Salicylate <1.0 <=1.0 mg/dL Comment: Interpretive Data Toxic: 30 mg/dL or greater. Current interpretive data was last revised 2023. Blood 12/12/2024 11:5 2 AM CDT 12/12/2024 12:02 PM CDT Troy Love MD LAB BLOOD ORDERABLES Fin al Result Performing Organization Address City/[facility] Co de Phone Number [address] [address] * Comprehensive metabolic panel (12/12/2024 11:52 AM CDT) Sodium 144 135 - 145 mmol/L Potassium, pl 3.5 3.3 - 4.9 mmol/L [facility] Comment:Hemolyzed; Potassium value may be falsely elevated by as much as 1.0 mmol/L. Suggest redraw and reanalysis. Chloride 106 97 - 110 mmol/L [facility] CO2 24 22 - 32 mmol/L [facility] Anion gap 14 2 - 15 mmol/L [facility] BUN 12 6 - 25 mg/dL [facility] Creatinine 0.83 0.80 - 1.30 mg/dL [facility] Glucose 120 70 - 199 mg/dL [facility] Comment: Interpretive Data Fasting glucose >/= 126 mg/dl is diagnostic for diabetes. Fasting is defined as no caloric intake for at least 8 hours. Fasting glucose between 100 mg/dl to 125 mg/dl is diagnostic of prediabetes. In a patient with classic symptoms of hyperglycemia or hyperglycemic crisis, a random glucose >/= 200 mg/dl is diagnostic for diabetes. In the absence of unequivocal hyperglycemia, results should be confirmed by repeat testing. The classification and Diagnosis of Diabetes Diabetes Care 202; 46: S19-S40. Current interpretive data was last revised 2022. Calcium 8.9 8.5 - 10.3 mg/dL [facility] Bilirubin, total <0.2 0.1 - 1.2 mg/dL [facility] Protein, pl 7.3 6.5 - 8.5 g/dL [facility] Albumin 4.3 3.5 - 5.0 g/dL [facility] Alk phos 104 40 - 130 Units/L [facility] ALT 38 7 - 55 Units/L [facility] AST See Comment 10 - 50 [facility] Comment:Credited; Hemolyzed Specimen Blood 12/12/2024 11:5 2 AM CDT 12/12/2024 12:02 PM CDT us Troy Love MD LAB BLOOD ORDERABLES Fin al Result [facility] [address] [facility] Department [place] [address] * ECG 12 lead (12/12/2024 11:46 AM CDT) Ventricular Rate EKG/Min 94 BPM [facility] Atrial Rate 94 BPM [facility] DC-Interval (MSEC) 144 ms [facility] QRS-Interval (MSEC) 94 ms [facility] QT-Interval (MSEC) 366 ms [facility] QTc 457 ms [facility] P [place] 47 degrees [facility] R [place] 20 degrees [facility] T [place] 54 degrees [facility] Diagnosis Normal sinus rhythm Incomplete right bundle branch block Borderline ECG No previous ECGs available Confirmed by RILEY DOHERTY M.D. ([id number]) on 12/12/2024 5:05:36 PM [facility] 12/12/2024 11:4 6 AM CDT 12/12/2024 5:05 PM CDT us Troy Love MD ECG ORDERABLES Final Re sult [facility] from Last 3 Months Insurance [facility] Advance Directives For more information, please contact: [phone] * Full Code (Latest Code Status on File) Date Activated Date Inactivated Comments 02/08/2025 3:16 PM 02/10/2025 4:48 PM * LIMITED - No CPR Date Activated Date Inactivated Comments 12/12/2024 4:11 PM 12/13/2024 2:56 PM Question Answer Comments Provide aggressive medical m anagement before a full cardiopulmonary arrest occurs. 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
--- OUTSIDE RECORDS SUMMARY | 2025-02-20 15:35 | XMS_ITS | Referral Summary ---
Author Organization [facility] al Address [address] [place] [address] Care Team Providers Care Customer Solutions Specialist Name Role Phone No, Physician Primary Care Provider [phone] Encounters Date Type Department Care Team Description 02/08/2025 1:16 PM CDT - 02/10/2025 12:45 PM CDT Hospital Encounter [facility] [address] [address] Carlton Sahu DO Alcohol withdrawal syndrome without complication (HCC) (Primary Dx); Opioid withdrawal (HCC) Discharge Disposition: Discharge to home or self care 02/08/2025 [facility] Initial Eligibility [facility] [address] [place], [place] [phone] Slime Chang 02/07/2025 12:43 PM CDT - 02/08/2025 1:24 AM CDT Emergency [facility] Emergency Department 1 [place] [address] Alcoholic intoxication without complication (Primary Dx) Discharge Disposition: Discharge to home or self care 02/07/2025 Documentation [facility] [address] [place] [phone] Elke Faith 01/23/2025 Documentation [facility] Case Management [address] [place] [phone] Leah Olson 12/12/2024 1:15 PM CDT - 12/13/2024 10:51 AM CDT Hospital Encounter [address] [address] Troy Love MD Ali, Md Shahin, MD Alcohol withdrawal syndrome with complication (HCC) (Primary Dx); Encounter to establish care Discharge Disposition: Discharge to home or self care from Last 3 Months Allergies No known active allergies Medications hydrocortisone [...] abuse 04/25/2024 Alcoholic intoxication with complication 024 Social History Tobacco Use Types Packs/Day Years Used Date Smoking Tobacco: Every Day Cigarettes Tobacco Cessation:Ready to Q uit: Not Asked; Counseling Given: Not Answered Alcohol Use Standard Drinks/Week Comments Yes 0 (1 standard drink = 0.6 oz pur e alcohol) 2 1/5th per day [facility] Utilities Answer Date Recorded In the past 12 months has [employer], [employer], or water [employer] threatened to shut off services in your [...] How often do you attend chur or adventist services? Never 12/13/2024 Do you belong to any clubs o r organizations such as temple groups, unions, fraternal or athletic groups, or [...] any time in the past 12 m [facility], were you homeless or living in a nursing home (including now)? No 12/13/2024 Personal Safety Answer [...] 02/08/2025 5:05 PM CDT Plan of Treatment Not on file Procedures Procedure Name Priority Date/Time Associated Diagnosis [...] DO LAB BLOOD ORDERABLES Fi nal Result [place] [address] [facility] Department [place] [address] * (ABNORMAL) Differential, auto (02/10/2025 3:12 AM CDT) Pathologist [facility] Neutrophil abs 8.70(H) 1.50 - 6.50 K/cumm Imm gran abs 0.04 0.00 - 0.10 K/cumm [facility] Lymphocyte abs 2.45 0.80 - 3.30 K/cumm [facility] Monocyte abs 1.09(H) 0.20 - 0.80 K/cumm [facility] Eosinophil abs 0.46 0.00 - 0.50 K/cumm [facility] Basophil abs 0.05 0.00 - 0.10 K/cumm [facility] Neutrophil pct 68.0 % [facility] Comment: Interpretive Data Percent cell count reference ranges are not reported, since discordance with absolute values may lead to misinterpretation of CBC data. Current Interpretive Data was last revised on 2017. Imm gran pct 0.3 % [facility] Comment: Interpretive Data Percent cell count reference ranges are not reported, since discordance with absolute values may lead to misinterpretation of CBC data. Current Interpretive Data was last revised on 2017. Lymphocyte pct 19.2 % [facility] Comment: Interpretive Data Percent cell count reference ranges are not reported, since discordance with absolute values may lead to misinterpretation of CBC data. Current Interpretive Data was last revised on 2017. Monocyte pct 8.5 % [facility] Comment: Interpretive Data Percent cell count reference ranges are not reported, since discordance with absolute values may lead to misinterpretation of CBC data. Current Interpretive Data was last revised on 2017. Eosinophil pct 3.6 % [facility] Comment: Interpretive Data Percent cell count reference ranges are not reported, since discordance with absolute values may lead to misinterpretation of CBC data. Current Interpretive Data was last revised on 2017. Basophil pct 0.4 % [facility] Comment: Interpretive Data Percent cell count reference ranges are not reported, since discordance with absolute values may lead to misinterpretation of CBC data. Current Interpretive Data was last revised on 2017. Blood 02/10/2025 3:12 AM CDT 02/10/2025 3:42 AM CDT Carlton Sahu DO LAB BLOOD ORDERABLES Fi [facility] Result [facility] [address] [facility] Department of Laboratories [place], [place] [id number] * (ABNORMAL) CBC with auto differential (02/10/2025 3:12 AM CDT) WBC 12.79(H) 3.80 - 9.90 K/cumm Hgb 14.5 13.0 - 17.5 g/dL [facility] Hct 43.9 38.9 - 50.3 % [facility] Plt 340 150 - 400 K/cumm [facility] MPV 9.8 9.1 - 12.3 fL [facility] RBC 5.04 4.30 - 5.80 M/cumm [facility] MCV 87.1 81.3 - 96.4 fL [facility] MCH 28.8 27.1 - 33.3 pg [facility] MCHC 33.0 32.3 - 35.7 g/dL [facility] RDW CV 14.1 11.1 - 14.9 % [facility] RDW SD 44.9 35.7 - 48.1 fL [facility] NRBC abs 0.00 0.00 - 0.01 K/cumm [facility] Blood 02/10/2025 3:12 AM CDT 02/10/2025 3:42 AM CDT Carlton Donavan Smithl DO LAB BLOOD ORDERABLES Fi nal Result Performing Organization Address [facility] de Phone Number [address] [place] [address] * Magnesium (02/10/2025 3:12 AM CDT) [facility] Magnesium 2.1 1.4 - 2.5 mg/dL Blood 02/10/2025 3:12 AM CDT 02/10/2025 3:41 AM CDT [employer] Donavan [employer] DO LAB BLOOD ORDERABLES Fi nal Result Performing Organization Address [facility] de Phone Number [address] [place] [address] * (ABNORMAL) Comprehensive metabolic panel (02/10/2025 3:12 AM CDT) [facility] Sodium 142 135 - 145 mmol/L Potassium, pl 4.5 3.3 - 4.9 mmol/L [facility] Chloride 108 97 - 110 mmol/L [facility] CO2 24 22 - 32 mmol/L [facility] Anion gap 10 2 - 15 mmol/L [facility] BUN 18 6 - 25 mg/dL [facility] Creatinine 1.08 0.80 - 1.30 mg/dL [facility] Glucose 105 70 - 199 mg/dL [facility] Comment: Interpretive Data Fasting glucose >/= 126 [...] 2022. Calcium 9.1 8.5 - 10.3 mg/dL [facility] Bilirubin, total 0.3 0.1 - 1.2 mg/dL [facility] Protein, pl 6.3(L) 6.5 - 8.5 g/dL [facility] Albumin 4.1 3.5 - 5.0 g/dL [facility] Alk phos 99 40 - 130 Units/L [facility] ALT 36 7 - 55 Units/L [facility] AST 27 10 - 50 Units/L [facility] Blood 02/10/2025 3:12 AM CDT 02/10/2025 3:41 AM CDT Carlton SanabriaJobHorecaspeedy DO LAB BLOOD ORDERABLES Fi nal Result Performing Organization Address [facility] de Phone Number [address] [place] [address] * Lactate (02/09/2025 10:41 AM CDT) [facility] Lactate 1.4 0.7 - 2.0 mmol/L Blood 02/09/2025 10:4 1 AM CDT 02/09/2025 10:46 AM CDT [employer] DO LAB BLOOD ORDERABLES Fi nal Result Performing Organization Address [facility] de Phone Number [address] [place] [address] * eGFR (02/09/2025 10:41 AM CDT) [facility] eGFR >90 >=60 mL/min/1. 73 m2 [...] of Race in Diagnosing Kidney Disease, JASN 202). The CKD-EPI equation should not be used for patients with unstable renal function and has not been validated in children and those over 70. Current interpretive data was last reviewed 2021. Blood 02/09/2025 10:4 1 AM CDT 02/09/2025 10:49 AM CDT Carlton Sahu DO LAB BLOOD ORDERABLES [facility] Result [place] [id number] [facility] Department [place] [address] * (ABNORMAL) Differential, auto (02/09/2025 10:41 AM CDT) Neutrophil abs 7.71(H) 1.50 - 6.50 K/cumm Imm gran abs 0.03 0.00 - 0.10 K/cumm [facility] Lymphocyte abs 2.00 0.80 - 3.30 K/cumm [facility] Monocyte abs 0.60 0.20 - 0.80 K/cumm [facility] Eosinophil abs 0.19 0.00 - 0.50 K/cumm [facility] Basophil abs 0.04 0.00 - 0.10 K/cumm [facility] Neutrophil pct 72.9 % [facility] Comment: Interpretive Data Percent cell count reference ranges are not reported, since discordance with absolute values may lead to misinterpretation of CBC data. Current Interpretive Data was last revised on 2017. Imm gran pct 0.3 % [facility] Comment: Interpretive Data Percent cell count reference ranges are not reported, since discordance with absolute values may lead to misinterpretation of CBC data. Current Interpretive Data was last revised on 2017. Lymphocyte pct 18.9 % [facility] Comment: Interpretive Data Percent cell count reference ranges are not reported, since discordance with absolute values may lead to misinterpretation of CBC data. Current Interpretive Data was last revised on 2017. Monocyte pct 5.7 % [facility] Comment: Interpretive Data Percent cell count reference ranges are not reported, since discordance with absolute values may lead to misinterpretation of CBC data. Current Interpretive Data was last revised on 2017. Eosinophil pct 1.8 % [facility] Comment: Interpretive Data Percent cell count reference ranges are not reported, since discordance with absolute values may lead to misinterpretation of CBC data. Current Interpretive Data was last revised on 2017. Basophil pct 0.4 % [facility] Comment: Interpretive Data Percent cell count reference ranges are not reported, since discordance with absolute values may lead to misinterpretation of CBC data. Current Interpretive Data was last revised on 2017. Blood 02/09/2025 10:4 1 AM CDT 02/09/2025 10:49 AM CDT us Carlton Sahu DO LAB BLOOD ORDERABLES Fi nal Result [facility] [address] [facility] Department [place] [address] * (ABNORMAL) CBC with auto differential (02/09/2025 10:41 AM CDT) WBC 10.57(H) 3.80 - 9.90 K/cumm Hgb 14.6 13.0 - 17.5 g/dL [facility] Hct 43.7 38.9 - 50.3 % [facility] Plt 360 150 - 400 K/cumm [facility] MPV 9.4 9.1 - 12.3 fL [facility] RBC 5.06 4.30 - 5.80 M/cumm [facility] MCV 86.4 81.3 - 96.4 fL [facility] MCH 28.9 27.1 - 33.3 pg [facility] MCHC 33.4 32.3 - 35.7 g/dL [facility] RDW CV 14.0 11.1 - 14.9 % [facility] RDW SD 44.0 35.7 - 48.1 fL [facility] NRBC abs 0.00 0.00 - 0.01 K/cumm [facility] Blood 02/09/2025 10:4 1 AM CDT 02/09/2025 10:49 AM CDT Carlton Donavan [employer] DO LAB BLOOD ORDERABLES Fi nal Result Performing Organization Address [facility] Co de Phone Number [address] [place] [address] * Magnesium (02/09/2025 10:41 AM CDT) [facility] Magnesium 2.1 1.4 - 2.5 mg/dL Blood 02/09/2025 10:4 1 AM CDT 02/09/2025 10:49 AM CDT Carlton Donavan Sahu DO LAB BLOOD ORDERABLES Fi nal Result Performing Organization Address [facility] de Phone Number [address] [place] [address] * Comprehensive metabolic panel (02/09/2025 10:41 AM CDT) Pathologist [facility] Sodium 141 135 - 145 mmol/L Potassium, pl 3.9 3.3 - 4.9 mmol/L [facility] Chloride 105 97 - 110 mmol/L [facility] CO2 26 22 - 32 mmol/L [facility] Anion gap 10 2 - 15 mmol/L [facility] BUN 20 6 - 25 mg/dL [facility] Creatinine 1.00 0.80 - 1.30 mg/dL [facility] Glucose 190 70 - 199 mg/dL [facility] Comment: Delta - Results Reviewed Interpretive Data [...] 2022. Calcium 9.2 8.5 - 10.3 mg/dL [facility] Bilirubin, total 0.4 0.1 - 1.2 mg/dL [facility] Protein, pl 6.6 6.5 - 8.5 g/dL [facility] Albumin 4.1 3.5 - 5.0 g/dL [facility] Alk phos 97 40 - 130 Units/L [facility] ALT 36 7 - 55 Units/L [facility] AST 31 10 - 50 Units/L [facility] Blood 02/09/2025 10:4 1 AM CDT 02/09/2025 10:49 AM CDT Carlton Donavan [employer] DO LAB BLOOD ORDERABLES Fi nal Result Performing Organization Address [facility] de Phone Number [address] [place], [place] [id number] * (ABNORMAL) Lactate (02/08/2025 5:33 PM CDT) [facility] Lactate 2.2(H) 0.7 - 2.0 mmol/L Blood 02/08/2025 5:33 PM CDT 02/08/2025 5:36 PM CDT [employer] DO LAB BLOOD ORDERABLES Fi nal Result Performing Organization Address [facility] de Phone Number [address] [address] * Drugs of Abuse Screen, Urine with Reflex Confirmation (02/08/2025 11:12 AM CDT) [facility] Amphetamine, ur Not Detected CutOff 500ng/mL Comment: Interpretive Data - Amphetamines: Samples containing greater than 500 ng/mL d-methamphetamine or other cross-reacting amphetamine compounds are reported as positive. Amphetamine immunoassays are subject to significant false positive rates due to cross-reactivity of non-amphetamine drugs. Confirmatory testing required for definitive results. Current Interpretive Data was last reviewed 2023. Barbiturates, ur Not Detected CutOff 200ng/mL [facility] Comment: Interpretive Data - Barbiturates: Samples containing greater than 200 ng/mL secobarbital or other cross-reacting barbiturate compounds are reported as positive. False positive and false negative results are possible. Confirmatory testing required for definitive results. Current Interpretive Data was last reviewed 2023. Benzodiazepines, ur Not Detected CutOff 100ng/mL [facility] Comment: Interpretive Data - Benzodiazepines: Samples containing greater than 100 ng/mL nordiazepam or other cross-reacting compounds are reported as positive. False positive and false negative results are possible. Confirmatory testing required for definitive results. Current Interpretive Data was last reviewed 2023. Cannabinoids, ur Not Detected CutOff 50 ng/mL [facility] Comment: Interpretive Data - Cannabinoids: Samples containing greater than 50 ng/mL delta-9 THC -COOH or other cross- reacting compounds are reported as positive. False positive and false negative results are possible. Confirmatory testing required for definitive results. Current Interpretive Data was last reviewed 2023. Cocaine, ur Not Detected CutOff 150ng/mL [facility] Comment: Interpretive Data - Cocaine: Samples containing greater than 150 ng/mL benzoylecgonine or other cross- reacting compounds are reported as positive. False positive and false negative results are possible. Confirmatory testing required for definitive results. Current Interpretive Data was last reviewed 2023. Fentanyl, Ur Not Detected CutOff 5 ng/mL [facility] Comment: Interpretive Data - Fentanyl: Samples containing greater than 5 ng/mL norfentanyl, fentanyl, or other cross-reacting fentanyl compounds are reported as positive. False positive and false negative results are possible. Confirmatory testing required for definitive results. Current Interpretive Data was last reviewed 2023. Methadone, ur Not Detected CutOff 300ng/mL [facility] Comment: Interpretive Data - Methadone: Samples containing greater than 300 ng/mL d,l-methadone or other cross-reacting compounds are reported as positive. False positive and false negative results are possible. Confirmatory testing required for definitive results. Current Interpretive Data was last reviewed 2023. Opiates, ur Not Detected CutOff 300ng/mL [facility] Comment: Interpretive Data - Opiates: Samples containing greater than 300 ng/mL morphine or other cross-reacting compounds are reported as positive. False positive and false negative results are possible. Confirmatory testing required for definitive results. Current Interpretive Data was last reviewed 2023. Oxycodone, ur Not Detected CutOff 100ng/mL [facility] Comment: Interpretive Data - Oxycodone: Samples containing greater than 100 ng/mL oxycodone or other cross-reacting compounds are reported as positive. False positive and false negative results are possible. Confirmatory testing required for definitive results. Current Interpretive Data was last reviewed 2023. Phencyclidine, ur Not Detected CutOff 25 ng/mL [facility] Comment: Interpretive Data - Phencyclidine: Samples containing greater than 25 ng/mL phencyclidine or other cross-reacting compounds are reported as positive. False positive and false negative results are possible. Confirmatory testing required for definitive results. Current Interpretive Data was last reviewed 2023. Urine Creatinine 25 mg/dL [facility] Comment: Interpretive Data Urine Creatinine: < 10 mg/dL is extremely dilute = or > 10 but < 20 mg/dL is dilute = or > 20 mg/dL is normal Current Interpretive Data was last revised on 2017. Urine 02/08/2025 11:1 2 AM CDT 02/08/2025 11:23 AM CDT Narrative [facility] - 02/08/2025 11:48 AM CDT Drug of Abuse screening is performed by immunoassay for medical purposes only. This is not to be used for Pain Management purposes. If Detected, confirmation testing will be performed for Amphetamines, Cocaine, Fentanyl, Methadone, Opiates, Oxycodone or Phencyclidine. us Carlton Sahu DO LAB URINE ORDERABLES Fi nal Result [facility] [address] [facility] Department [place] [address] * Urinalysis reflex to microscopic and culture Urine (02/08/2025 11:12 AM CDT) Color, ur Straw Yellow Clarity, ur Clear Clear [facility] Specific gravity, ur 1.004 1.003 - 1.030 [facility] pH, urine 5.5 [facility] Comment: Interpretive Data U rine pH is affected by diet, medications, systemic acid-base disturbances, and renal tubular function. pH may affect urinary stone formation. For example, urine pH below 6.0 may help reduce the tendency for calcium phosphate stones and pH greater than 6.0 may reduce the tendency for uric acid stone formation. Source: [facility] Current Interpretive Data was last revised on 2017 Protein, ur ql Negative Negative [facility] Glucose, ur ql Negative Negative [facility] Ketones, ur Negative Negative [facility] Bilirubin, ur Negative Negative [facility] Blood, ur Negative Negative [facility] Urobilinogen, ur <2.0 <2.0 mg/dL [facility] Nitrite, ur Negative Negative [facility] Leukocyte esterase, ur Negative Negative [facility] UA reflex comment Reflex conditions for microscopic UA and culture not met. [facility] Urine 02/08/2025 11:1 2 AM CDT 02/08/2025 11:23 AM CDT Carlton Sahu DO LAB MICROBIOLOGY - GENE RAL ORDERABLES Final Result [facility] [address] [facility] Department [place] [address] * eGFR (02/08/2025 11:01 AM CDT) Pathologist [facility] eGFR >90 >=60 mL/min/1. 73 m2 Comment: [...] DO LAB BLOOD ORDERABLES Fi nal Result [facility] [address] [facility] Department [place] [address] * (ABNORMAL) Differential, auto (02/08/2025 11:01 AM CDT) Neutrophil abs 10.61(H) 1.50 - 6.50 K/cumm Imm gran abs 0.04 0.00 - 0.10 K/cumm [facility] Lymphocyte abs 3.69(H) 0.80 - 3.30 K/cumm [facility] Monocyte abs 0.60 0.20 - 0.80 K/cumm [facility] Eosinophil abs 0.07 0.00 - 0.50 K/cumm [facility] Basophil abs 0.05 0.00 - 0.10 K/cumm [facility] Neutrophil pct 70.4 % [facility] Comment: Interpretive Data Percent cell count reference ranges are not reported, since discordance with absolute values may lead to misinterpretation of CBC data. Current Interpretive Data was last revised on 2017. Imm gran pct 0.3 % [facility] Comment: Interpretive Data Percent cell count reference ranges are not reported, since discordance with absolute values may lead to misinterpretation of CBC data. Current Interpretive Data was last revised on 2017. Lymphocyte pct 24.5 % [facility] Comment: Interpretive Data Percent cell count reference ranges are not reported, since discordance with absolute values may lead to misinterpretation of CBC data. Current Interpretive Data was last revised on 2017. Monocyte pct 4.0 % [facility] Comment: Interpretive Data Percent cell count reference ranges are not reported, since discordance with absolute values may lead to misinterpretation of CBC data. Current Interpretive Data was last revised on 2017. Eosinophil pct 0.5 % [facility] Comment: Interpretive Data Percent cell count reference ranges are not reported, since discordance with absolute values may lead to misinterpretation of CBC data. Current Interpretive Data was last revised on 2017. Basophil pct 0.3 % [facility] Comment: Interpretive Data Percent cell count reference ranges are not reported, since discordance with absolute values may lead to misinterpretation of CBC data. Current Interpretive Data was last revised on 2017. Blood 02/08/2025 11:0 1 AM CDT 02/08/2025 11:18 AM CDT us Carlton Sahu DO LAB BLOOD ORDERABLES Fi nal Result [facility] [address] [facility] Department [place] [address] * (ABNORMAL) CBC with auto differential (02/08/2025 11:01 AM CDT) WBC 15.06(H) 3.80 - 9.90 K/cumm Hgb 15.4 13.0 - 17.5 g/dL [facility] Hct 45.2 38.9 - 50.3 % [facility] Plt 373 150 - 400 K/cumm [facility] MPV 9.3 9.1 - 12.3 fL [facility] RBC 5.34 4.30 - 5.80 M/cumm [facility] MCV 84.6 81.3 - 96.4 fL [facility] MCH 28.8 27.1 - 33.3 pg [facility] MCHC 34.1 32.3 - 35.7 g/dL [facility] RDW CV 14.2 11.1 - 14.9 % [facility] RDW SD 43.9 35.7 - 48.1 fL [facility] NRBC abs 0.00 0.00 - 0.01 K/cumm [facility] Blood 02/08/2025 11:0 1 AM CDT 02/08/2025 11:18 AM CDT Carlton SmithIMGuest LAB BLOOD ORDERABLES Fi nal Result Performing Organization Address [facility] de Phone Number [address] [address] * (ABNORMAL) Ethanol (02/08/2025 11:01 AM CDT) Pathologist [facility] Ethanol 189(H) <=10 mg/dL Comment: Interpretive Data Legal limit of intoxication > or = 80 mg/dL Levels > or = 400 mg/dL are potentially TOXIC. Current interpretive data was last revised on 2018. Blood 02/08/2025 11:0 1 AM CDT 02/08/2025 11:18 AM CDT Carlton Sahu LAB BLOOD ORDERABLES Fi nal Result Performing Organization Address [facility] Center de Phone Number [address] [address] * (ABNORMAL) Comprehensive metabolic panel (02/08/2025 11:01 AM CDT) [facility] Sodium 140 135 - 145 mmol/L Potassium, pl 4.3 3.3 - 4.9 mmol/L [facility] Chloride 101 97 - 110 mmol/L [facility] CO2 23 22 - 32 mmol/L [facility] Anion gap 16(H) 2 - 15 mmol/L [facility] BUN 15 6 - 25 mg/dL [facility] Creatinine 0.97 0.80 - 1.30 mg/dL [facility] Glucose 84 70 - 199 mg/dL [facility] Comment: Interpretive Data Fasting glucose >/= 126 [...] 2022. Calcium 9.7 8.5 - 10.3 mg/dL [facility] Bilirubin, total 0.4 0.1 - 1.2 mg/dL [facility] Protein, pl 7.9 6.5 - 8.5 g/dL [facility] Albumin 5.1(H) 3.5 - 5.0 g/dL [facility] Alk phos 116 40 - 130 Units/L [facility] ALT 43 7 - 55 Units/L [facility] AST 36 10 - 50 Units/L [facility] Blood 02/08/2025 11:0 1 AM CDT 02/08/2025 11:18 AM CDT Carlton Sahu DO LAB BLOOD ORDERABLES Fi nal Result Performing Organization Address City/[facility] Co de Phone Number DONALD [address] [facility] [employer] [place] [address] * (ABNORMAL) Ethanol (02/08/2025 12:28 AM CDT) Ethanol 88(H) <=10 mg/dL Comment: Interpretive Data Legal limit of intoxication > or = 80 mg/dL Levels > or = 400 mg/dL are potentially TOXIC. Current interpretive data was last revised on 2018. Blood 02/08/2025 12:2 8 AM CDT 02/08/2025 12:30 AM CDT us Camron LITTLE LAB BLOOD ORDERA BLES Final Result Performing Organization Address City/[facility]/ZIP Co de Phone Number DONALD [facility] ([place]) [address] [facility] [employer] [place] [address] * (ABNORMAL) Drugs of Abuse Screen, Urine without Confirmation (02/07/2025 3:33 PM CDT) Amphetamine, ur Not Detected CutOff 500ng/mL Comment: Interpretive Data - Amphetamines: Samples containing greater than 500 ng/mL d-methamphetamine or other cross-reacting amphetamine compounds are reported as positive. Amphetamine immunoassays are subject to significant false positive rates due to cross-reactivity of non-amphetamine drugs. Confirmatory testing required for definitive results. Current Interpretive Data was last reviewed 2023. Barbiturates, ur Not Detected CutOff 200ng/mL [facility] ([place]) Comment: Interpretive Data - Barbiturates: Samples containing greater than 200 ng/mL secobarbital or other cross-reacting barbiturate compounds are reported as positive. False positive and false negative results are possible. Confirmatory testing required for definitive results. Current Interpretive Data was last reviewed 2023. Benzodiazepines, ur Not Detected CutOff 100ng/mL [facility] ([place]) Comment: Interpretive Data - Benzodiazepines: [...] Opiates, ur Not Detected CutOff 300ng/mL [facility] ([place]) Comment: Interpretive Data - Opiates: Samples containing greater than 300 ng/mL morphine or other cross-reacting compounds are reported as positive. False positive and false negative results are possible. Confirmatory testing required for definitive results. Current Interpretive Data was last reviewed 2023. Oxycodone, ur Screen Positive, presumptive (A) CutOff 100ng/mL [facility] ([place]) Comment: Interpretive Data - Oxycodone: Samples containing greater than 100 ng/mL oxycodone or other cross-reacting compounds are reported as positive. False positive and false negative results are possible. Confirmatory testing required for definitive results. Current Interpretive Data was last reviewed 2023. Phencyclidine, ur Not Detected CutOff 25 ng/mL [facility] ([place]) Comment: Interpretive Data - Phencyclidine: Samples containing greater than 25 ng/mL phencyclidine or other cross-reacting compounds are reported as positive. False positive and false negative results are possible. Confirmatory testing required for definitive results. Current Interpretive Data was last reviewed 2023. Urine Creatinine 23 mg/dL [facility] ([place]) Comment: Interpretive Data Urine Creatinine: < [...] to be used for Pain Management purposes. us Bryson Alex MD LAB URINE ORDERABLES Final R esult [facility]D [facility] ([place]) [address] [facility] Department [place] [address] * eGFR (02/07/2025 12:19 PM CDT) Pathologist [facility] eGFR >90 >=60 mL/min/1. 73 m2 Comment: [...] MD LAB BLOOD ORDERABLES Final R esult [facility] ([place]) [address] [facility] Department [place] [address] * Differential, auto (02/07/2025 12:19 PM CDT) Pathologist [facility] Neutrophil abs 6.11 1.50 - 6.50 K/cumm Imm gran abs 0.02 0.00 - 0.10 K/cumm [facility] ([place]) Lymphocyte abs 3.24 0.80 - 3.30 K/cumm [facility] ([place]) Monocyte abs 0.50 0.20 - 0.80 K/cumm [facility] ([place]) Eosinophil abs 0.20 0.00 - 0.50 K/cumm [...] LAB BLOOD ORDERABLES Final R esult [facility]ALD [facility] ([place]) [address] [facility] Department [place] [address] * (ABNORMAL) CBC with auto differential (02/07/2025 12:19 PM CDT) WBC 10.10(H) 3.80 - 9.90 K/cumm Hgb 15.7 13.0 - 17.5 g/dL [facility] ([place]) Hct 47.0 38.9 - 50.3 % [facility] ([place]) Plt 392 150 - 400 K/cumm [facility] ([place]) MPV 9.4 9.1 - 12.3 fL [facility] ([place]) RBC 5.43 4.30 - 5.80 M/cumm [facility] ([place]) MCV 86.6 81.3 - 96.4 fL [facility] ([place]) MCH 28.9 27.1 - 33.3 pg [facility] ([place]) MCHC 33.4 32.3 - 35.7 g/dL [facility] ([place]) RDW CV 14.3 11.1 - 14.9 % [facility] ([place]) RDW SD 45.2 35.7 - 48.1 fL [facility] ([place]) NRBC abs 0.00 0.00 - 0.01 K/cumm [facility] ([place]) Blood 02/07/2025 12:1 9 PM CDT 02/07/2025 12:38 PM CDT us Bryson Alex MD LAB BLOOD ORDERABLES Final R esult [facility] ([place]) [address] [facility] Department [place] [address] * (ABNORMAL) Ethanol (02/07/2025 12:19 PM CDT) Ethanol 353(C) <=10 mg/dL Comment: Critical Result called by [email or web address] at 2025-02-07 13:09:02. Result Read Back by Shonda Laureano ED Interpretive Data Legal limit of intoxication > or = 80 mg/dL Levels > or = 400 mg/dL are potentially TOXIC. Current interpretive data was last revised on 2018. Blood 02/07/2025 12:1 9 PM CDT 02/07/2025 12:38 PM CDT us Bryson Alex MD LAB BLOOD ORDERABLES Final R esult [facility] ([place]) [address] [facility] Department [place] [address] * (ABNORMAL) Comprehensive metabolic panel (02/07/2025 12:19 PM CDT) Sodium 143 135 - 145 mmol/L Potassium, pl 4.3 3.3 - 4.9 mmol/L [facility] ([place]) Chloride 103 97 - 110 mmol/L [facility] ([place]) CO2 23 22 - 32 mmol/L [facility] ([place]) Anion gap 17(H) 2 - 15 mmol/L [facility] ([place]) BUN 9 6 - 25 mg/dL [facility] ([place]) Creatinine 0.96 0.80 - 1.30 mg/dL [facility] ([place]) Glucose 95 70 - 199 mg/dL [facility] ([place]) Comment: Interpretive Data Fasting glucose >/= [...] 39 7 - 55 Units/L [facility] ([place]) AST 27 10 - 50 Units/L [facility] ([place]) Blood 02/07/2025 12:1 9 PM CDT 02/07/2025 12:38 PM CDT us Bryson Alex MD LAB BLOOD ORDERABLES Final R esult DONALD [facility] ([place]) [address] [facility] Department [place] [address] * eGFR (12/13/2024 3:12 AM CDT) eGFR [...] NP LAB BLOOD ORDERABLES Final Result DONALD [address] [facility] Department [place] [address] * (ABNORMAL) Differential, auto (12/13/2024 3:12 AM CDT) Pathologist [facility] Neutrophil abs 5.33 1.50 - 6.50 K/cumm Imm gran abs 0.05 0.00 - 0.10 K/cumm [facility] Lymphocyte abs 3.47(H) 0.80 - 3.30 K/cumm [facility] Monocyte abs 1.00(H) 0.20 - 0.80 K/cumm [facility] Eosinophil abs 0.35 0.00 - 0.50 K/cumm [facility] Basophil abs 0.04 0.00 - 0.10 K/cumm [facility] Neutrophil pct 52.0 % [facility] Comment: Interpretive Data Percent cell count reference ranges are not reported, since discordance with absolute values may lead to misinterpretation of CBC data. Current Interpretive Data was last revised on 2017. Imm gran pct 0.5 % [facility] Comment: Interpretive Data Percent cell count reference ranges are not reported, since discordance with absolute values may lead to misinterpretation of CBC data. Current Interpretive Data was last revised on 2017. Lymphocyte pct 33.9 % [facility] Comment: Interpretive Data Percent cell count reference ranges are not reported, since discordance with absolute values may lead to misinterpretation of CBC data. Current Interpretive Data was last revised on 2017. Monocyte pct 9.8 % [facility] Comment: Interpretive Data Percent cell count reference ranges are not reported, since discordance with absolute values may lead to misinterpretation of CBC data. Current Interpretive Data was last revised on 2017. Eosinophil pct 3.4 % [facility] Comment: Interpretive Data Percent cell count reference ranges are not reported, since discordance with absolute values may lead to misinterpretation of CBC data. Current Interpretive Data was last revised on 2017. Basophil pct 0.4 % [facility] Comment: Interpretive Data Percent cell count reference ranges are not reported, since discordance with absolute values may lead to misinterpretation of CBC data. Current Interpretive Data was last revised on 2017. Blood 12/13/2024 3:12 AM CDT 12/13/2024 4:06 AM CDT us Addy Garibay NP LAB BLOOD ORDERABLES Final Result [facility] [address] [facility] Department of Laboratories [place], [place] [id number] * (ABNORMAL) CBC with auto differential (12/13/2024 3:12 AM CDT) [facility] WBC 10.24(H) 3.80 - 9.90 K/cumm Hgb 13.9 13.0 - 17.5 g/dL [facility] Hct 41.7 38.9 - 50.3 % [facility] Plt 247 150 - 400 K/cumm [facility] MPV 9.7 9.1 - 12.3 fL [facility] RBC 4.70 4.30 - 5.80 M/cumm [facility] MCV 88.7 81.3 - 96.4 fL [facility] MCH 29.6 27.1 - 33.3 pg [facility] MCHC 33.3 32.3 - 35.7 g/dL [facility] RDW CV 13.9 11.1 - 14.9 % [facility] RDW SD 44.9 35.7 - 48.1 fL [facility] NRBC abs 0.00 0.00 - 0.01 K/cumm [facility] Blood 12/13/2024 3:12 AM CDT 12/13/2024 4:06 AM CDT Addy Garibay NP LAB BLOOD ORDERABLES Final Result Performing Organization Address [facility] Co de Phone Number [address] [employer] [place] [address] * Phosphorus (12/13/2024 3:12 AM CDT) [facility] Phosphorus, pl 3.6 2.3 - 4.5 mg/dL Blood 12/13/2024 3:12 AM CDT 12/13/2024 4:06 AM CDT Addy Garibay [employer] LAB BLOOD ORDERABLES Final Result Performing Organization Address City/[facility] Co de Phone Number [address] [place] [address] * Magnesium (12/13/2024 3:12 AM CDT) [facility] Magnesium 1.8 1.4 - 2.5 mg/dL Blood 12/13/2024 3:12 AM CDT 12/13/2024 4:06 AM CDT Addy Garibay [employer] LAB BLOOD ORDERABLES Final Result Performing Organization Address [facility] de Phone Number [address] [address] * Basic metabolic panel (12/13/2024 3:12 AM CDT) [facility] Sodium 140 135 - 145 mmol/L Potassium, pl 4.1 3.3 - 4.9 mmol/L [facility] Chloride 104 97 - 110 mmol/L [facility] CO2 28 22 - 32 mmol/L [facility] Anion gap 8 2 - 15 mmol/L [facility] BUN 20 6 - 25 mg/dL [facility] Creatinine 1.12 0.80 - 1.30 mg/dL [facility] Glucose 95 70 - 199 mg/dL [facility] Comment: Interpretive Data Fasting glucose >/= 126 [...] 2022. Calcium 9.0 8.5 - 10.3 mg/dL [facility] Blood 12/13/2024 3:12 AM CDT 12/13/2024 4:06 AM CDT Addy Garibay NP LAB BLOOD ORDERABLES Final Result Performing Organization Address [facility] Co de Phone Number [address] [address] * Urinalysis reflex to microscopic and culture Urine (12/12/2024 11:56 AM CDT) Color, ur Straw Yellow Clarity, ur Clear Clear [facility] Specific gravity, ur 1.003 1.003 - 1.030 [facility] pH, urine 6.0 [facility] Comment: Interpretive Data U rine pH is affected by diet, medications, systemic acid-base disturbances, and renal tubular function. pH may affect urinary stone formation. For example, urine pH below 6.0 may help reduce the tendency for calcium phosphate stones and pH greater than 6.0 may reduce the tendency for uric acid stone formation. Source: [facility] Current Interpretive Data was last revised on 2017 Protein, ur ql Negative Negative [facility] Glucose, ur ql Negative Negative [facility] Ketones, ur Negative Negative [facility] Bilirubin, ur Negative Negative [facility] Blood, ur Negative Negative [facility] Urobilinogen, ur <2.0 <2.0 mg/dL [facility] Nitrite, ur Negative Negative [facility] Leukocyte esterase, ur Negative Negative [facility] UA reflex comment Reflex conditions for microscopic UA and culture not met. [facility] Urine 12/12/2024 11:5 6 AM CDT 12/12/2024 11:58 AM CDT Troy Love MD LAB MICROBIOLOGY - [facility] ORDERABLES Final Result [facility] [address] [facility] Department [place] [address] * (ABNORMAL) Drugs of Abuse Screen, Urine without Confirmation (12/12/2024 11:56 AM CDT) Amphetamine, ur Not Detected CutOff 500ng/mL Comment: Interpretive Data - Amphetamines: Samples containing greater than 500 ng/mL d-methamphetamine or other cross-reacting amphetamine compounds are reported as positive. Amphetamine immunoassays are subject to significant false positive rates due to cross-reactivity of non-amphetamine drugs. Confirmatory testing required for definitive results. Current Interpretive Data was last reviewed 2023. Barbiturates, ur Not Detected CutOff 200ng/mL [facility] Comment: Interpretive Data - Barbiturates: Samples containing greater than 200 ng/mL secobarbital or other cross-reacting barbiturate compounds are reported as positive. False positive and false negative results are possible. Confirmatory testing required for definitive results. Current Interpretive Data was last reviewed 2023. Benzodiazepines, ur Screen Positive, presumptive (A) CutOff 100ng/mL [facility] Comment: Interpretive Data - Benzodiazepines: Samples containing greater than 100 ng/mL nordiazepam or other cross-reacting compounds are reported as positive. False positive and false negative results are possible. Confirmatory testing required for definitive results. Current Interpretive Data was last reviewed 2023. Cannabinoids, ur Not Detected CutOff 50 ng/mL [facility] Comment: Interpretive Data - Cannabinoids: Samples containing greater than 50 ng/mL delta-9 THC -COOH or other cross- reacting compounds are reported as positive. False positive and false negative results are possible. Confirmatory testing required for definitive results. Current Interpretive Data was last reviewed 2023. Cocaine, ur Not Detected CutOff 150ng/mL [facility] Comment: Interpretive Data - Cocaine: Samples containing greater than 150 ng/mL benzoylecgonine or other cross- reacting compounds are reported as positive. False positive and false negative results are possible. Confirmatory testing required for definitive results. Current Interpretive Data was last reviewed 2023. Fentanyl, Ur Not Detected CutOff 5 ng/mL [facility] Comment: Interpretive Data - Fentanyl: Samples containing greater than 5 ng/mL norfentanyl, fentanyl, or other cross-reacting fentanyl compounds are reported as positive. False positive and false negative results are possible. Confirmatory testing required for definitive results. Current Interpretive Data was last reviewed 2023. Methadone, ur Not Detected CutOff 300ng/mL [facility] Comment: Interpretive Data - Methadone: Samples containing greater than 300 ng/mL d,l-methadone or other cross-reacting compounds are reported as positive. False positive and false negative results are possible. Confirmatory testing required for definitive results. Current Interpretive Data was last reviewed 2023. Opiates, ur Not Detected CutOff 300ng/mL [facility] Comment: Interpretive Data - Opiates: Samples containing [...] AM CDT 12/12/2024 11:58 AM CDT Narrative [facility] - 12/12/2024 12:31 PM CDT Drug of Abuse screening is performed by immunoassay for medical purposes only. This is not to be used for Pain Management purposes. Troy Love MD LAB URINE ORDERABLES Fin al Result [facility] [address] [facility] Department [place] [address] * eGFR (12/12/2024 11:52 AM CDT) eGFR >90 >=60 mL/min/1. 73 [...] MD LAB BLOOD ORDERABLES Fin al Result [facility] Department [place] [address] * (ABNORMAL) Differential, auto (12/12/2024 11:52 AM CDT) Neutrophil abs 6.15 1.50 - 6.50 K/cumm Imm gran abs 0.03 0.00 - 0.10 K/cumm [facility] Lymphocyte abs 4.24(H) 0.80 - 3.30 K/cumm [facility] Monocyte abs 0.67 0.20 - 0.80 K/cumm [facility] Eosinophil abs 0.27 0.00 - 0.50 K/cumm [facility] Basophil abs 0.04 0.00 - 0.10 K/cumm [facility] Neutrophil pct 53.8 % [facility] Comment: Interpretive Data Percent cell count reference ranges are not reported, since discordance with absolute values may lead to misinterpretation of CBC data. Current Interpretive Data was last revised on 2017. Imm gran pct 0.3 % [facility] Comment: Interpretive Data Percent cell count reference ranges are not reported, since discordance with absolute values may lead to misinterpretation of CBC data. Current Interpretive Data was last revised on 2017. Lymphocyte pct 37.2 % [facility] Comment: Interpretive Data Percent cell count reference ranges are not reported, since discordance with absolute values may lead to misinterpretation of CBC data. Current Interpretive Data was last revised on 2017. Monocyte pct 5.9 % [facility] Comment: Interpretive Data Percent cell count reference ranges are not reported, since discordance with absolute values may lead to misinterpretation of CBC data. Current Interpretive Data was last revised on 2017. Eosinophil pct 2.4 % [facility] Comment: Interpretive Data Percent cell count reference ranges are not reported, since discordance with absolute values may lead to misinterpretation of CBC data. Current Interpretive Data was last revised on 2017. Basophil pct 0.4 % [facility] Comment: Interpretive Data Percent cell count reference ranges are not reported, since discordance with absolute values may lead to misinterpretation of CBC data. Current Interpretive Data was last revised on 2017. Blood 12/12/2024 11:5 2 AM CDT 12/12/2024 12:02 PM CDT Troy Love MD LAB BLOOD ORDERABLES Fin al Result Performing Organization Address [facility] Co de Phone Number [address] [place] [address] * Thyroid Function [place] (12/12/2024 11:52 AM CDT) Pathologist [facility] TSH 0.53 0.30 - 4.20 mcIUnit/mL Blood 12/12/2024 11:5 2 AM CDT 12/12/2024 12:02 PM CDT Troy Love MD LAB BLOOD ORDERABLES Fin al Result Performing Organization Address City/[facility] Co de Phone Number [address] [place] [address] * (ABNORMAL) CBC with auto differential (12/12/2024 11:52 AM CDT) Pathologist [facility] WBC 11.40(H) 3.80 - 9.90 K/cumm Hgb 14.6 13.0 - 17.5 g/dL [facility] Hct 43.9 38.9 - 50.3 % [facility] Plt 267 150 - 400 K/cumm [facility] MPV 9.3 9.1 - 12.3 fL [facility] RBC 5.12 4.30 - 5.80 M/cumm [facility] MCV 85.7 81.3 - 96.4 fL [facility] MCH 28.5 27.1 - 33.3 pg [facility] MCHC 33.3 32.3 - 35.7 g/dL [facility] RDW CV 14.0 11.1 - 14.9 % [facility] RDW SD 42.9 35.7 - 48.1 fL [facility] NRBC abs 0.00 0.00 - 0.01 K/cumm [facility] Blood Venous blood specimen / Unknown 12/12/2024 11:52 AM CDT 12/12/2024 12:02 PM CDT Troy Love MD LAB BLOOD ORDERABLES Fin al Result Performing Organization Address [facility] de Phone Number [address] [employer] [place] [address] * (ABNORMAL) Ethanol (12/12/2024 11:52 AM CDT) Ethanol 289(H) <=10 mg/dL Comment: Interpretive Data Legal limit of intoxication > or = 80 mg/dL Levels > or = 400 mg/dL are potentially TOXIC. Current interpretive data was last revised on 2018. Blood 12/12/2024 11:5 2 AM CDT 12/12/2024 12:02 PM CDT Troy Love MD LAB BLOOD ORDERABLES Fin al Result Performing Organization Address City/[facility] de Phone Number [address] [employer] [place] [address] * Acetaminophen level (12/12/2024 11:52 AM CDT) [...] after ingestion Consult toxicology or poison control ([phone]) for unknown ingestion time. Current interpretive data was last revised 2023. Blood 12/12/2024 11:5 2 AM CDT 12/12/2024 12:02 PM CDT Troy Love MD LAB BLOOD ORDERABLES Fin al Result Performing Organization Address [facility] de Phone Number [address] [address] * Salicylate level (12/12/2024 11:52 AM CDT) Pathologist [facility] Salicylate <1.0 <=1.0 mg/dL Comment: Interpretive Data Toxic: 30 mg/dL or greater. Current interpretive data was last revised 2023. Blood 12/12/2024 11:5 2 AM CDT 12/12/2024 12:02 PM CDT Troy Love MD LAB BLOOD ORDERABLES Fin al Result Performing Organization Address [facility] de Phone Number [address] [address] * Comprehensive metabolic panel (12/12/2024 11:52 AM CDT) Sodium 144 135 - 145 mmol/L Potassium, pl 3.5 3.3 - 4.9 mmol/L [facility] Comment:Hemolyzed; Potassium value may be falsely elevated by as much as 1.0 mmol/L. Suggest redraw and reanalysis. Chloride 106 97 - 110 mmol/L [facility] CO2 24 22 - 32 mmol/L [facility] Anion gap 14 2 - 15 mmol/L [facility] BUN 12 6 - 25 mg/dL [facility] Creatinine 0.83 0.80 - 1.30 mg/dL [facility] Glucose 120 70 - 199 mg/dL [facility] Comment: Interpretive Data Fasting glucose >/= 126 [...] 2022. Calcium 8.9 8.5 - 10.3 mg/dL [facility] Bilirubin, total <0.2 0.1 - 1.2 mg/dL [facility] Protein, pl 7.3 6.5 - 8.5 g/dL [facility] Albumin 4.3 3.5 - 5.0 g/dL [facility] Alk phos 104 40 - 130 Units/L [facility] ALT 38 7 - 55 Units/L [facility] AST See Comment 10 - 50 [facility] Comment:Credited; Hemolyzed Specimen Blood 12/12/2024 11:5 2 AM CDT 12/12/2024 12:02 PM CDT Troy Love MD LAB BLOOD ORDERABLES Fin al Result [facility] [address] [facility] Department [place] [address] * ECG 12 lead (12/12/2024 11:46 AM CDT) Ventricular Rate EKG/Min 94 BPM [facility] Atrial Rate 94 BPM [facility] MA-Interval (MSEC) 144 ms [facility] QRS-Interval (MSEC) 94 ms [facility] QT-Interval (MSEC) 366 ms [facility] QTc 457 ms [facility] P [place] 47 degrees [facility] R [place] 20 degrees [facility] T [place] 54 degrees [facility] Diagnosis Normal sinus rhythm Incomplete right bundle branch block Borderline ECG No previous ECGs available Confirmed by RILEY DOHERTY M.D. ([id number]) on 12/12/2024 5:05:36 PM [facility] 12/12/2024 11:4 6 AM CDT 12/12/2024 5:05 PM CDT us Troy Love MD ECG ORDERABLES Final Re sult [facility] from Last 3 Months [facility] Advance Directives For more information, please contact: [phone] * Full Code (Latest Code Status on [...] 12:56 AM 03/23/2024 1:44 PM Care Teams Customer Solutions Specialist Relationship Specialty Start Date End Date No, Physician PCP - General 01/08/23
--- OUTSIDE RECORDS SUMMARY | 2025-02-20 15:35 | XMS_ITS | Clinical Summary ---
Author Organization [facility] Address [address] [place] [address] Phone Care Team Providers Care Mail Superintendent Name Role Phone Unavailable Primary Care Provider Unavailabl e Allergies No known active allergies Medications No known medications Encounters Date Type Department Care Team Description 12/29/2024 External Device Data [facility] Provider, Abstract 12/28/2024 External Device Data [facility] Provider, Abstract 12/28/2024 External Device Data [facility] Provider, Abstract 12/27/2024 External Device Data [facility] Provider, Abstract 12/27/2024 External Device Data [facility] Provider, Abstract 12/12/2024 External Device Data [facility] Provider, Abstract 11/21/2024 External Device Data [facility] Provider, Abstract from Last 3 Months Immunizations Immunization Administration Dates Next Due (ADACEL/BOOSTRIX)(10 YR UP) TDAP VACCINE, 0.5ML, IM 01/07/2024 Social History Tobacco Use Types Packs/Day Years Used Date Smoking Tobacco: Never Assessed Cigarettes Tobacco Cessation:Ready to Q uit: Not Asked; Counseling Given: Not Answered Alcohol Use Standard Drinks/Week Comments Yes 0 (1 standard drink = 0.6 oz pur e alcohol) Feeling Safe Answer Date Recorded Are you in a relationship wi th someone who hurts you emotionally and/or physically? No 01/06/2024 Sex and Gender Information Value Date Recorded Sex Assigned at Not on file Legal Sex Male 8:01 AM [employer] Gender Identity Not on file Sexual Orientation Not on file Last Filed Vital Signs Vital Sign Reading Time Taken Comments Blood Pressure 113/66 01/07/2024 12:55 AM CDT Pulse 83 01/07/2024 12:55 AM CDT Temperature 36.8 C (98.2 F) 01/06/2024 11:57 PM CDT Respiratory Rate 13 01/07/2024 12:55 AM CDT Oxygen Saturation 97% 01/07/2024 12:55 AM CDT Inhaled Oxygen Concentration - - Weight 95.3 kg (210 lb) 01/06/2024 11:52 PM CDT Height 177.8 cm (5' 10) 01/06/2024 11:52 PM CDT Body Mass Index 30.13 01/06/2024 11:52 PM CDT Plan of Treatment Health Maintenance Due Date Last Done Comments HEPATITIS B VACCINES (1 of 3 - 19+ 3-dose series) 01/17/2004 INFLUENZA VACCINE (#1) 2025 DTAP/TDAP/TD VACCINES (2 - T d or Tdap) 01/06/2034 01/07/2024 HPV VACCINES Aged Out No longer eligi ble based on patient's age to complete this topic Insurance [facility] MEDICAID [facility] CHOICE [id number]
[2025-02-20 17:09] VITALS: BP 132/85; PULSE 68; O2SAT 98
== END 2025-02-20 17:19 | disposition home or self-care (01) ==
PROVIDERS: Emergency Provider Emergency Medicine; PCP Internal Medicine
DX: F10.920 Alcohol use, unspecified with intoxication, uncomplicated (principal); S00.212A Abrasion of left eyelid and periocular area, initial encounter; X58.XXXA Exposure to other specified factors, initial encounter
CPT/HCPCS: 70450; 72125; 99284